=== PATIENT | male | born 1940 | race Caucasian/White ===

== ENCOUNTER 2017-11-24 13:47 | Outpatient (CLI) | payer MEDICARE, MEDICAID ==
[2017-11-24 14:00] VITALS: BP 118/50
[2017-11-24] MEDS ORDERED: DULCOLAX10 MG RC (16:21)
[2017-11-24] MEDS ORDERED: ATORVASTATIN CA20 MG ORAL (16:21)
[2017-11-24] MEDS ORDERED: FOLIC ACID1 MG ORAL (16:21)
[2017-11-24] MEDS ORDERED: FERROUS SULFAT325 MG ORAL (16:21)
[2017-11-24] MEDS ORDERED: DEXILANT60 MG ORAL (16:21)
[2017-11-24] MEDS ORDERED: MILK OF MA400 MG/51 ORAL (16:21)
[2017-11-24] MEDS ORDERED: ISOSORBIDE MONO60 M1 PO (16:21)
[2017-11-24] MEDS ORDERED: PLAVIX75 MG ORAL (16:21)
[2017-11-24] MEDS ORDERED: CARVEDILOL3.125 MG ORAL (16:21)
[2017-11-24] MEDS ORDERED: RANEXA500 MG ORAL (16:21)
[2017-11-24] MEDS ORDERED: PROZAC20 MG ORAL (16:21)
[2017-11-24] MEDS ORDERED: VITAMIN D250000 UNI1 ORAL (16:21)
[2017-11-24] MEDS ORDERED: ALBUTEROL2.5 MG/3 M INH (16:21)
[2017-11-24] MEDS ORDERED: ACETAMINOPHEN325 M1 ORAL (16:21)
[2017-11-24] MEDS ORDERED: ASPIRIN EC81 MG ORAL (16:21)
[2017-11-24] MEDS ORDERED: SOD CITRATE-CIT15 ML PO (16:21)
[2017-11-24] MEDS ORDERED: MULTIVITAMINS1 EAC2 ORAL (16:21)
--- NOTE | 2017-11-24 16:41 | GI Initial Consult Note ---
Alexandria Moreno N.PVishnu 11/24/17 1640: History of Present Illness General Date patient seen: Nov 24, 2017 Time patient seen: 15:00 Referring physician: DARRIAN Reason for Consultation: ANEMIA Present Illness HPI 77 year old male referred by Dr. Jarquin for anemia evaluation. Pt presents today with c/o of lower abdominal pain, N/V and diarrhea. Currently on a mechanical soft diet. Stated he had diarrhea with dehydration/acute kidney failure approximately 10 days ago. Recent admission to [place], where patient received IV abx. No colonoscopy in the past. Home Meds Reported Medications Loperamide HCl (IMODIUM A-D) 2 Mg Capsule, 2 MG PO Q6HR Y for Diarrhea, CAP 11/24/17 Furosemide* (LASIX*) 20 Mg Tablet, 10 MG ORAL DAILY, TAB 11/24/17 Docusate Sodium* (DOCUSATE SODIUM*) 100 Mg Capsule, 200 MG ORAL DAILY, CAP 11/24/17 Potassium Chloride (KLOR-CON M20) 20 Meq Tab.er.prt, 20 MEQ ORAL DAILY, TAB 0 Refills 11/24/17 Amlodipine Besylate* (AMLODIPINE BESYLATE*) 5 Mg Tablet, 5 MG ORAL DAILY, TAB 11/24/17 Pantoprazole* (PROTONIX*) 40 Mg Tablet.dr, 40 MG ORAL DAILY, TAB 11/24/17 Citric Acid/Sodium Citrate (SOD CITRATE-CITRIC ACID SOLN) 15 Ml Solution, 15 ML PO QID 11/24/17 Ranolazine* (RANEXA*) 500 Mg Tab.er.12h, 1000 MG ORAL EVERY 12 HOURS, #60 TAB 0 Refills 11/24/17 Fluoxetine Hcl* (PROZAC*) 20 Mg Capsule, 20 MG ORAL DAILY, CAP 11/24/17 Clopidogrel Bisulfate* (PLAVIX*) 75 Mg Tablet, 75 MG ORAL DAILY, TAB 11/24/17 Multivitamins* (MULTIVITAMINS*) 1 Each Tablet, 1 TAB ORAL DAILY, TAB 0 Refills 11/24/17 Magnesium Hydroxide* (MILK OF MAGNESIA*) 400 Mg/5 Ml Oral.susp, 30 ML ORAL PRN, ML 11/24/17 Isosorbide Mononitrate (ISOSORBIDE MONONITRATE ER) 60 Mg Tab.er.24h, 60 MG PO DAILY, TAB 11/24/17 Folic Acid* (FOLIC ACID*) 1 Mg Tablet, 1 MG ORAL DAILY, TAB 11/24/17 Ferrous Sulfate* (FERROUS SULFATE*) 325 Mg Tablet, 325 MG ORAL DAILY, #30 TAB 0 Refills 11/24/17 Ergocalciferol (Vitamin D2)* (VITAMIN D*) 50,000 Unit Capsule, 78704 UNIT ORAL ONCE A WEEK, CAP 11/24/17 Bisacodyl (DULCOLAX) 10 Mg Supp.rect, 10 MG RC PRN, SUPP 11/24/17 Dexlansoprazole (Dexilant) 60 Mg Cap.bp, 60 MG ORAL DAILY, CAP 11/24/17 Carvedilol* (CARVEDILOL*) 3.125 Mg Tablet, 3.125 MG ORAL EVERY 12 HOURS, TAB 11/24/17 Atorvastatin Calcium* (ATORVASTATIN CALCIUM*) 20 Mg Tablet, 20 MG ORAL BEDTIME, TAB 11/24/17 Aspirin Ec* (ASPIRIN EC*) 81 Mg Tablet., 81 MG ORAL DAILY, TAB 11/24/17 Albuterol Sulfate* (ALBUTEROL SULFATE HHN*) 2.5 Mg/3 Ml Vial.neb, 3 ML INH Q4H Y for Shortness of Breath, EA 11/24/17 Acetaminophen* (ACETAMINOPHEN 325MG TABLET*) 325 Mg Tablet, 325 MG ORAL Q6H Y for For Pain Level <=5, TAB 11/24/17 Med list reviewed/reconciled: Yes Allergies: Coded Allergies: No Known Allergies (Unverified , 11/24/17) Patient History History Provided By: Patient, Medical Record PMH Narrative Bladder CA GERD IBS ?COPD HTN/HLD CHF CAD Anemia Depression Past Surgical History: 2004 double bypass 2014 bladder removal Pertinent Family History: none Social History: Reports: smoking - quit, alcohol use Review of Systems All Other Systems: negative except mentioned in HPI Physical Exam Vital Signs Date Time Temp Pulse Resp B/P (MAP) Pulse Ox O2 Delivery O2 Flow Rate FiO2 11/24/17 14:00 97.7 79 16 118/50 96 97.7 Sp02 EP Interpretation: reviewed, normal General Appearance: well appearing, no apparent distress, alert Head: normocephalic EENT: PERRL/EOMI, normal ENT inspection Neck: supple Respiratory: normal breath sounds, no respiratory distress Cardiovascular: normal rate Gastrointestinal: normal inspection, non tender, soft, normal bowel sounds, non -distended Rectal: deferred Genitourinary: deferred Musculoskeletal: back normal, other - wheel chair Neurologic: normal inspection, alert, oriented x3, responsive Psychiatric: normal inspection, judgement/insight normal, memory normal Skin: normal inspection, normal color, no rash, warm/dry, palpation normal, well hydrated Lymphatic: normal inspection, no adenopathy GI: Plan Problems: (1) Anemia (2) Colitis (3) Colonoscopy planned (4) Bladder carcinoma (5) GERD (gastroesophageal reflux disease) (6) IBS (irritable bowel syndrome) (7) HTN (hypertension) (8) HLD (hyperlipidemia) (9) CHF (congestive heart failure) (10) CAD (coronary artery disease) (11) Depression Plan EGD/colonoscopy scheduled for 11/28/17. - CLD & (Nulytely/Suprep/Movi-Prep) prep instructions given and acknowledged by patient. - NPO @ AL day prior procedure explained. - orders to be sent to SNF Seen with Dr. Villalta. Thank you for this patient referral. JHON VILLALTA 11/28/17 1010: History of Present Illness Present Illness Home Meds Reported Medications Loperamide HCl (IMODIUM A-D) 2 Mg Capsule, 2 MG PO Q6HR Y for Diarrhea, CAP 11/24/17 Furosemide* (LASIX*) 20 Mg Tablet, 10 MG ORAL DAILY, TAB 11/24/17 Docusate Sodium* (DOCUSATE SODIUM*) 100 Mg Capsule, 200 MG ORAL DAILY, CAP 11/24/17 Potassium Chloride (KLOR-CON M20) 20 Meq Tab.er.prt, 20 MEQ ORAL DAILY, TAB 0 Refills 11/24/17 Amlodipine Besylate* (AMLODIPINE BESYLATE*) 5 Mg Tablet, 5 MG ORAL DAILY, TAB 11/24/17 Pantoprazole* (PROTONIX*) 40 Mg Tablet.dr, 40 MG ORAL DAILY, TAB 11/24/17 Citric Acid/Sodium Citrate (SOD CITRATE-CITRIC ACID SOLN) 15 Ml Solution, 15 ML PO QID 11/24/17 Ranolazine* (RANEXA*) 500 Mg Tab.er.12h, 1000 MG ORAL EVERY 12 HOURS, #60 TAB 0 Refills 11/24/17 Fluoxetine Hcl* (PROZAC*) 20 Mg Capsule, 20 MG ORAL DAILY, CAP 11/24/17 Clopidogrel Bisulfate* (PLAVIX*) 75 Mg Tablet, 75 MG ORAL DAILY, TAB 11/24/17 Multivitamins* (MULTIVITAMINS*) 1 Each Tablet, 1 TAB ORAL DAILY, TAB 0 Refills 11/24/17 Magnesium Hydroxide* (MILK OF MAGNESIA*) 400 Mg/5 Ml Oral.susp, 30 ML ORAL PRN, ML 11/24/17 Isosorbide Mononitrate (ISOSORBIDE MONONITRATE ER) 60 Mg Tab.er.24h, 60 MG PO DAILY, TAB 11/24/17 Folic Acid* (FOLIC ACID*) 1 Mg Tablet, 1 MG ORAL DAILY, TAB 11/24/17 Ferrous Sulfate* (FERROUS SULFATE*) 325 Mg Tablet, 325 MG ORAL DAILY, #30 TAB 0 Refills 11/24/17 Ergocalciferol (Vitamin D2)* (VITAMIN D*) 50,000 Unit Capsule, 73317 UNIT ORAL ONCE A WEEK, CAP 11/24/17 Bisacodyl (DULCOLAX) 10 Mg Supp.rect, 10 MG RC PRN, SUPP 11/24/17 Dexlansoprazole (Dexilant) 60 Mg Cap.bp, 60 MG ORAL DAILY, CAP 11/24/17 Carvedilol* (CARVEDILOL*) 3.125 Mg Tablet, 3.125 MG ORAL EVERY 12 HOURS, TAB 11/24/17 Atorvastatin Calcium* (ATORVASTATIN CALCIUM*) 20 Mg Tablet, 20 MG ORAL BEDTIME, TAB 11/24/17 Aspirin Ec* (ASPIRIN EC*) 81 Mg Tablet.dr, 81 MG ORAL DAILY, TAB 11/24/17 Albuterol Sulfate* (ALBUTEROL SULFATE HHN*) 2.5 Mg/3 Ml Vial.neb, 3 ML INH Q4H Y for Shortness of Breath, EA 11/24/17 Acetaminophen* (ACETAMINOPHEN 325MG TABLET*) 325 Mg Tablet, 325 MG ORAL Q6H Y for For Pain Level <=5, TAB 11/24/17 Allergies: Coded Allergies: No Known Allergies (Unverified , 11/24/17) GI: Plan Plan The patient was seen and examined at bedside and all new and available data was reviewed in the patients chart. I agree with the above findings, impression and plan. (Patient seen earlier today. Signature stamp does not reflect patient encounter time.). - MD Tiffanie Gomez Anh Santi Bobo Nov 24, 2017 16:40 JHON VILLALTA Nov 28, 2017 10:10
[2017-11-24] MEDS ORDERED: PROTONIX40 MG ORAL (22:42)
[2017-11-24] MEDS ORDERED: KLOR-CON M2020 MEQ ORAL (22:42)
[2017-11-24] MEDS ORDERED: AMLODIPINE BESYL5 MG ORAL (22:42)
[2017-11-24] MEDS ORDERED: DOCUSATE SODIU100 MG ORAL (22:42)
[2017-11-24] MEDS ORDERED: IMODIUM A-D2 M2 PO (22:51)
[2017-11-24] MEDS ORDERED: FUROSEMIDE20 M1 ORAL (22:51)
== END 2017-11-24 14:17 | disposition home or self-care (01) ==
LOC: PAN 13:47
DX: K52.9 Noninfective gastroenteritis and colitis, unspecified (principal); D64.9 Anemia, unspecified; C67.9 Malignant neoplasm of bladder, unspecified; K21.9 Gastro-esophageal reflux disease without esophagitis; K58.9 Irritable bowel syndrome, unspecified; I10 Essential (primary) hypertension; E78.5 Hyperlipidemia, unspecified; I11.0 Hypertensive heart disease with heart failure; F32.9 Major depressive disorder, single episode, unspecified; F17.200 Nicotine dependence, unspecified, uncomplicated; Z79.82 Long term (current) use of aspirin
CPT/HCPCS: 99202

== ENCOUNTER 2017-11-24 19:44 | Inpatient (IN) | payer MEDICARE, OTHER ==
[~2017-11-24] VITALS: Ht 167.6 cm; Wt 86.0 kg
[~2017-11-24 19:44] MED LIST: ACETAMINOPHEN325 M1 ORAL; ALBUTEROL2.5 MG/3 M INH; ASPIRIN EC81 MG ORAL; ATORVASTATIN CA20 MG ORAL; CARVEDILOL3.125 MG ORAL; DEXILANT60 MG ORAL; DULCOLAX10 MG RC; FERROUS SULFAT325 MG ORAL; FOLIC ACID1 MG ORAL; ISOSORBIDE MONO60 M1 PO; MILK OF MA400 MG/51 ORAL; MULTIVITAMINS1 EAC2 ORAL; PLAVIX75 MG ORAL; PROZAC20 MG ORAL; RANEXA500 MG ORAL; SOD CITRATE-CIT15 ML PO; VITAMIN D250000 UNI1 ORAL
[2017-11-24 20:30] LABS: BASOPHILS % (AUTO) 1.1 % (0.0-2.0); EOSINOPHILS % (AUTO) 0.5 % (0.0-3.0); HEMATOCRIT 24.9 % (42.0-52.0); HEMOGLOBIN 8.4 G/DL (14.2-18.0); MEAN CORPUSCULAR VOLUME 99 FL (80-99); MONOCYTES % (AUTO) 5.8 % (1.0-10.0); NEUTROPHILS % (AUTO) 80.6 % (45.0-75.0); PLATELET COUNT 223 K/UL (150-450); RED BLOOD COUNT 2.51 M/UL (4.70-6.10); RED CELL DISTRIBUTION WIDTH 14.5 % (11.6-14.8); WHITE BLOOD COUNT 6.5 K/UL (4.8-10.8)
[2017-11-24 20:48] LABS: INR 1.1 (0.9-1.1)
[2017-11-24 20:50] VITALS: BP 135/48
[2017-11-24 21:49] LABS: ANION GAP 10 mmol/L (5-15); BLOOD UREA NITROGEN 17 mg/dL (7-18); CALCIUM 8.8 MG/DL (8.5-10.1); CARBON DIOXIDE 19 MMOL/L (21-32); CHLORIDE 104 MMOL/L (98-107); CREATININE 1.2 MG/DL (0.55-1.30); SODIUM 133 MMOL/L (136-145)
[2017-11-24 22:03] LABS: ALANINE AMINOTRANSFERASE 29 U/L (12-78); ALBUMIN 1.9 G/DL (3.4-5.0); ALBUMIN/GLOBULIN RATIO 0.4 (1.0-2.7); ALKALINE PHOSPHATASE 68 U/L (46-116); ASPARTATE AMINO TRANSFERASE 80 U/L (15-37); BILIRUBIN,TOTAL 0.8 MG/DL (0.2-1.0); CKMB 0.5 NG/ML (0.0-3.6); CREATINE KINASE 186 U/L (26-308)
[2017-11-24 22:14] LABS: POTASSIUM 5.8 MMOL/L (3.5-5.1)
--- NOTE | 2017-11-24 22:19 | Emergency Room Report ---
History of Present Illness General Chief Complaint: Chest Pain Source: Patient, Family Member Present Illness HPI This patient presents from a correction facility. Apparently he has had a difficult couple of weeks. He developed a bad colitis and diarrhea and became very dehydrated. He was admitted to [facility] for a couple weeks. He was then transitioned to a correction facility. He's had several episodes of chest pain and anxiety at the correction facility. He presents today with chest pain. He also complains of pain related to irritation from the diarrhea. Has a history of sepsis in bacteremia related to colitis. History of congestive heart failure. History of acute kidney injury. History of coronary artery disease and CABG. Allergies: Coded Allergies: No Known Allergies (Unverified , 11/24/17) Patient History Past Medical History: see triage record, HTN, [place], CAD, CHF, pneumonia, renal disease Past Surgical History: CABG Social History: Denies: smoking, alcohol use, drug use Reviewed Nursing Documentation: PMH: Agreed, PSxH: Agreed Nursing Documentation-PMH Hx Cardiac Problems: Yes Hx Hypertension: Yes Hx COPD: Yes - ? Hx Cancer: Yes Hx Gastrointestinal Problems: Yes Hx Neurological Problems: No Review of Systems All Other Systems: negative except mentioned in HPI Physical Exam Vital Signs Date Time Temp Pulse Resp B/P (MAP) Pulse Ox O2 Delivery O2 Flow Rate FiO2 11/24/17 19:38 96.0 78 18 135/48 97 Room Air 96.1 Sp02 EP Interpretation: reviewed, normal General Appearance: no apparent distress, alert, GCS 15, non-toxic Head: normocephalic, atraumatic Eyes: bilateral eye normal inspection, bilateral eye PERRL ENT: hearing grossly normal, normal pharynx, no angioedema, normal voice Neck: full range of motion, supple/symm/no masses Respiratory: chest non-tender, lungs clear, normal breath sounds, speaking full sentences Cardiovascular #1: regular rate, rhythm, no edema Gastrointestinal: normal bowel sounds, non tender, soft, non-distended, no guarding, no rebound Rectal: deferred Musculoskeletal: back normal, normal range of motion, non-tender Neurologic: alert, oriented x3, responsive, sensory intact, speech normal Psychiatric: judgement/insight normal, memory normal, mood/affect normal Skin: well hydrated, other - See RN note Medical Decision Making Diagnostic Impression: Primary Impression: Chest pain Additional Impression: Elevated troponin ER Course This patient presents from a correction facility with chest pain. His troponin is indeterminate. Given his age, history of coronary artery disease and chest pain he will be admitted to the hospital for further trending of his cardiac enzymes and further evaluation and treatment. He is also found to be anemic. This seems to be slightly lower than his baseline. He is being followed closely by GI for his colitis and has planned a colonoscopy. He was admitted for further evaluation and treatment. Laboratory Tests Test 11/24/17 19:50 11/24/17 21:15 White Blood Count 6.5 K/UL (4.8-10.8) Red Blood Count 2.51 M/UL (4.70-6.10) L Hemoglobin 8.4 G/DL (14.2-18.0) L Hematocrit 24.9 % (42.0-52.0) L Mean Corpuscular Volume 99 FL (80-99) Mean Corpuscular Hemoglobin 33.4 PG (27.0-31.0) H Mean Corpuscular Hemoglobin Concent 33.7 G/DL (32.0-36.0) Red Cell Distribution Width 14.5 % (11.6-14.8) Platelet Count 223 K/UL (150-450) Mean Platelet Volume 8.7 FL (6.5-10.1) Neutrophils (%) (Auto) 80.6 % (45.0-75.0) H Lymphocytes (%) (Auto) 12.0 % (20.0-45.0) L Monocytes (%) (Auto) 5.8 % (1.0-10.0) Eosinophils (%) (Auto) 0.5 % (0.0-3.0) Basophils (%) (Auto) 1.1 % (0.0-2.0) Prothrombin Time 11.2 SEC (9.30-11.50) Prothrombin Time INR 1.1 (0.9-1.1) PTT 28 SEC (23-33) Troponin I 0.129 ng/mL (0.000-0.056) Sodium Level 133 MMOL/L (136-145) L Potassium Level 5.8 MMOL/L (3.5-5.1) H Chloride Level 104 MMOL/L (98-107) Carbon Dioxide Level 19 MMOL/L (21-32) L Anion Gap 10 mmol/L (5-15) Blood Urea Nitrogen 17 mg/dL (7-18) Creatinine 1.2 MG/DL (0.55-1.30) Estimate Glomerular Filtration Rate mL/min (>60) Glucose Level 97 MG/DL (74-106) Calcium Level 8.8 MG/DL (8.5-10.1) Total Bilirubin Pending Aspartate Amino Transferase (AST) Pending Alanine Aminotransferase (ALT) Pending Alkaline Phosphatase Pending Total Creatine Kinase Pending Creatine Kinase MB Pending Total Protein Pending Albumin Pending Globulin Pending EKG Diagnostic Results Rate: normal Rhythm: NSR ST Segments: no acute changes Rhythm Strip Diag. Results EP Interpretation: yes Rate: 70's Rhythm: NSR, no PVC's, no ectopy Chest X-Ray Diagnostic Results Chest X-Ray Diagnostic Results : Chest X-Ray Ordered: Yes # of Views/Limited/Complete: 1 View Indication: Chest Pain EP Interpretation: Yes Interpretation: no consolidation, no effusion, no pneumothorax, no acute cardiopulmonary disease Impression: No acute disease Electronically Signed by: Angelito Last Vital Signs Date Time Temp Pulse Resp B/P (MAP) Pulse Ox O2 Delivery O2 Flow Rate FiO2 11/24/17 19:38 96.0 78 18 135/48 97 Room Air 96.1 Disposition: ADMITTED INPATIENT Condition: Stable Referrals: JHON COLMENARES (PCP) KEYA BLOCK D.O. Nov 24, 2017 22:18
[2017-11-24] MEDS ORDERED: AMLODIPINE BESYL5 MG ORAL (22:42)
[2017-11-24] MEDS ORDERED: KLOR-CON M2020 MEQ ORAL (22:42)
[2017-11-24] MEDS ORDERED: PROTONIX40 MG ORAL (22:42)
[2017-11-24] MEDS ORDERED: DOCUSATE SODIU100 MG ORAL (22:42)
[2017-11-24 22:46] VITALS: BP 117/46
[2017-11-24] MEDS ORDERED: IMODIUM A-D2 M2 PO (22:51)
[2017-11-24] MEDS ORDERED: FUROSEMIDE20 M1 ORAL (22:51)
[2017-11-24] MEDS ORDERED: ALPRAZolam 0.25mg tab ORAL ONE (23:30)
[2017-11-25] VITALS (8 sets, daily range): BP systolic 108–132; BP diastolic 48–55
[2017-11-25] MEDS ORDERED: LORazepam Inj 2mg/ml 1ml IV ONE (03:45)
[2017-11-25 03:51] LABS: APPEARANCE,URINE CLEAR; BILIRUBIN, URINE NEGATIVE (NEGATIVE); GLUCOSE, URINE (UA) NEGATIVE (NEGATIVE); KETONES,URINE NEGATIVE (NEGATIVE); LEUKOCYTE ESTERASE ,URINE 2+ (NEGATIVE); NITRITE,URINE NEGATIVE (NEGATIVE); PH,URINE 7 (4.5-8.0); PROTEIN,URINE 2+ (NEGATIVE); UROBILINOGEN,URINE NORMAL MG/DL (0.0-1.0)
[2017-11-25 04:00] LABS: COLOR,URINE AMBER
[2017-11-25] MEDS ORDERED: Milk of Magnesia 30ml Ud ORAL PRN (08:45)
[2017-11-25] MEDS ORDERED: Albuterol ud Inhalation HHN PRN (08:45)
[2017-11-25] MEDS ORDERED: Loperamide 2mg cap ORAL PRN (08:45)
[2017-11-25] MEDS ORDERED: Aspirin EC 81mg tab ORAL SCH (09:00)
[2017-11-25] MEDS: D5NS 1,000 ML IV SCH ×2 (10:25→21:50)
[2017-11-25] MEDS: Aspirin Baby 81mg ORAL SCH (10:26)
[2017-11-25] MEDS: Docusate 100mg cap ORAL SCH (10:28)
[2017-11-25] MEDS: Ranolazine 500mg tab ORAL SCH ×2 (10:30→22:13)
[2017-11-25] MEDS: Sodium Citrate 30ml ORAL SCH ×4 (10:48→22:12)
[2017-11-25 10:56] LABS: ALANINE AMINOTRANSFERASE 22 U/L (12-78); ALBUMIN 2.1 G/DL (3.4-5.0); ALKALINE PHOSPHATASE 67 U/L (46-116); ASPARTATE AMINO TRANSFERASE 21 U/L (15-37); BILIRUBIN,DIRECT 0.1 MG/DL (0.0-0.3); BILIRUBIN,TOTAL 0.3 MG/DL (0.2-1.0); CHOLESTEROL 111 MG/DL (< 200); HDL CHOLESTEROL 26 MG/DL (40-60); TRIGLYCERIDES 159 MG/DL (30-150)
--- NOTE | 2017-11-25 11:06 | Diagnostic Imaging Report ---
Indication: Chest pain Comparison: 02/16/2006 A single view chest radiograph was obtained. Findings: Interstitial reticular markings present bilaterally. Findings appear relatively stable compared to last study. The heart is borderline enlarged. Sternotomy noted. Bones are osteopenic. IMPRESSION: Interstitial prominence nonspecific.
--- NOTE | 2017-11-25 11:18 | History & Physical ---
History and Physical History & Physicial pt seen and examined d/w Dr Dowd at bedside d/w daughter chelle. Full note dictated Shavonne Oro MD [phone] SHAVONNE OOR Nov 25, 2017 11:18
--- NOTE | 2017-11-25 11:30 | Wound Care Consultation ---
Wound Assessment Wound Assessment #1: Wound Number: 1 Wound Present on Admission: Yes New Wound: No Status Change of Wound: No Wound Location Body Site Modif: mid Wound Location Body Site: other - Sacrococcygeal Wound Type: pressure ulcer Douglas Test: Does not Douglas Pressure Ulcer Stage: Deep Tissue Injury Wound Thickness: Full Thickness Wound Length: 6.5 Wound Width: 5.0 Wound Depth: utd Percent of Wound Purple/Maroon: 100 Wound Drainage Amount: None Wound Drainage Odor: None/Absent Tissue Surrounding Wound: Erythemic Wound General Appearance: Reddened - purple, deep red Wound Assessment #2: Wound Number: 2 Wound Present on Admission: Yes New Wound: No Status Change of Wound: No Wound Location Body Site: perineal area - extending to left and right buttock Wound Type: erosion Douglas Test: Does not Douglas Rashes: Rachael w/erosion Percent of Wound Sidney/Red: 100 Wound Drainage Amount: None Wound Drainage Odor: None/Absent Tissue Surrounding Wound: Erythemic Wound General Appearance: Reddened Wound Assessment #3: Wound Number: 3 Wound Present on Admission: Yes New Wound: No Status Change of Wound: No Wound Location Body Site Modif: left Wound Location Body Site: hand Wound Type: scab - dry Douglas Test: Does not Douglas Wound Thickness: Full Thickness Percent of Wound Purple/Maroon: 100 Wound Drainage Amount: None Wound Drainage Odor: None/Absent Tissue Surrounding Wound: Erythemic Wound General Appearance: Reddened Wound Comment #1 Sacrococcygeal SDTI pressure ulcer #2 Rachael rash with erosion on perineal area extending to left and right buttocks #3 Dry scab on left arm #4 Left and right heel noted with dry skin Recommendation -Local wound care per protocol -Keep clean and dry -Turn and reposition -Offload both heels -Heel protector on both heels -Optimize nutrition -Low air loss mattress -Assess and f/u accordingly for any changes MAURA TA RN Nov 25, 2017 11:30
--- NOTE | 2017-11-25 12:40 | Consultation ---
History of Present Illness General Date patient seen: Nov 25, 2017 Chief Complaint: Chest Pain Present Illness HPI 77 year old male with hx of CVA, IBD, CHF, HTN, coronary artery disease and CABG presented to ER from a snf facility with CC of several episodes of chest pain and anxiety at the snf facility. Pt is not a good historian and seems depressed, doesn't want to answer any questions. Allergies: Coded Allergies: No Known Allergies (Unverified , 11/24/17) Medication History Scheduled Amlodipine Besylate* (Amlodipine Besylate*), 5 MG ORAL DAILY, (Reported) Aspirin Ec* (Aspirin Ec*), 81 MG ORAL DAILY, (Reported) Atorvastatin Calcium* (Atorvastatin Calcium*), 20 MG ORAL BEDTIME, (Reported) Bisacodyl (Dulcolax), 10 MG RC PRN, (Reported) Carvedilol* (Carvedilol*), 3.125 MG ORAL EVERY 12 HOURS, (Reported) Citric Acid/Sodium Citrate (Sod Citrate-Citric Acid Soln), 15 ML PO QID, ( Reported) Clopidogrel Bisulfate* (Plavix*), 75 MG ORAL DAILY, (Reported) Dexlansoprazole (Dexilant), 60 MG ORAL DAILY, (Reported) Docusate Sodium* (Docusate Sodium*), 200 MG ORAL DAILY, (Reported) Ergocalciferol (Vitamin D2)* (Vitamin D*), 50,000 UNIT ORAL ONCE A WEEK, ( Reported) Ferrous Sulfate* (Ferrous Sulfate*), 325 MG ORAL DAILY, (Reported) Fluoxetine Hcl* (Prozac*), 20 MG ORAL DAILY, (Reported) Folic Acid* (Folic Acid*), 1 MG ORAL DAILY, (Reported) Furosemide* (Lasix*), 10 MG ORAL DAILY, (Reported) Isosorbide Mononitrate (Isosorbide Mononitrate Er), 60 MG PO DAILY, (Reported) Magnesium Hydroxide* (Milk Of Magnesia*), 30 ML ORAL PRN, (Reported) Multivitamins* (Multivitamins*), 1 TAB ORAL DAILY, (Reported) Pantoprazole* (Protonix*), 40 MG ORAL DAILY, (Reported) Potassium Chloride (Klor-Con M20), 20 MEQ ORAL DAILY, (Reported) Ranolazine* (Ranexa*), 1,000 MG ORAL EVERY 12 HOURS, (Reported) Scheduled PRN Acetaminophen* (Acetaminophen 325MG Tablet*), 325 MG ORAL Q6H PRN for For Pain Level <=5, (Reported) Albuterol Sulfate* (Albuterol Sulfate Hhn*), 3 ML INH Q4H PRN for Shortness of Breath, (Reported) Loperamide HCl (Imodium A-D), 2 MG PO Q6HR PRN for Diarrhea, (Reported) Patient History Healthcare decision maker Resuscitation status Advanced Directive on File Past Medical/Surgical History Past Medical/Surgical History: (1) Bladder carcinoma (2) IBS (irritable bowel syndrome) (3) Depression Review of Systems All Other Systems: negative except mentioned in HPI Physical Exam General Appearance: WD/WN, no apparent distress Lines, tubes and drains: peripheral HEENT: normocephalic, atraumatic Neck: non-tender, normal alignment Respiratory/Chest: chest wall non-tender, lungs clear Cardiovascular/Chest: normal peripheral pulses, normal rate Abdomen: normal bowel sounds, non tender Genitourinary/Rectal: normal genital exam Extremities: normal range of motion Skin Exam: warm/dry 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 Last 24 Hour Vital Signs Date Time Temp Pulse Resp B/P (MAP) Pulse Ox O2 Delivery O2 Flow Rate FiO2 11/25/17 10:31 77 132/55 11/25/17 10:27 77 132/55 11/25/17 08:00 74 11/25/17 08:00 97.5 77 22 132/55 98 Room Air 98 97.5 11/25/17 05:20 97.2 77 18 108/51 99 Room Air 97.2 11/25/17 04:43 97.2 77 18 108/51 99 Room Air 97.2 11/25/17 03:00 97.2 75 18 126/48 99 Room Air 97.2 11/25/17 01:30 97.0 78 20 126/51 99 Room Air 97.0 11/24/17 22:46 97.0 75 21 117/46 100 Room Air 97.0 11/24/17 20:50 78 18 Room Air 11/24/17 20:50 96.1 71 18 135/48 97 Room Air 96.1 11/24/17 19:38 96.0 78 18 135/48 97 Room Air 96.1 Intake and Output 11/24/17 11/25/17 19:00 07:00 Intake Total 200 ml Balance 200 ml Intake Oral 200 ml # Bowel Movements 1 Laboratory Tests Test 11/24/17 19:50 11/24/17 21:15 11/24/17 22:00 11/25/17 03:30 White Blood Count 6.5 K/UL (4.8-10.8) Red Blood Count 2.51 M/UL (4.70-6.10) L Hemoglobin 8.4 G/DL (14.2-18.0) L Hematocrit 24.9 % (42.0-52.0) L Mean Corpuscular Volume 99 FL (80-99) Mean Corpuscular Hemoglobin 33.4 PG (27.0-31.0) H Mean Corpuscular Hemoglobin Concent 33.7 G/DL (32.0-36.0) Red Cell Distribution Width 14.5 % (11.6-14.8) Platelet Count 223 K/UL (150-450) Mean Platelet Volume 8.7 FL (6.5-10.1) Neutrophils (%) (Auto) 80.6 % (45.0-75.0) H Lymphocytes (%) (Auto) 12.0 % (20.0-45.0) L Monocytes (%) (Auto) 5.8 % (1.0-10.0) Eosinophils (%) (Auto) 0.5 % (0.0-3.0) Basophils (%) (Auto) 1.1 % (0.0-2.0) Prothrombin Time 11.2 SEC (9.30-11.50) Prothromb Time International Ratio 1.1 (0.9-1.1) Activated Partial Thromboplast Time 28 SEC (23-33) Troponin I 0.129 ng/mL (0.000-0.056) Sodium Level 133 MMOL/L (136-145) L Potassium Level 5.8 MMOL/L (3.5-5.1) H 3.3 MMOL/L (3.5-5.1) L Chloride Level 104 MMOL/L (98-107) Carbon Dioxide Level 19 MMOL/L (21-32) L Anion Gap 10 mmol/L (5-15) Blood Urea Nitrogen 17 mg/dL (7-18) Creatinine 1.2 MG/DL (0.55-1.30) Estimat Glomerular Filtration Rate mL/min (>60) Glucose Level 97 MG/DL (74-106) Calcium Level 8.8 MG/DL (8.5-10.1) Total Bilirubin 0.8 MG/DL (0.2-1.0) Aspartate Amino Transf (AST/SGOT) 80 U/L (15-37) H Alanine Aminotransferase (ALT/SGPT) 29 U/L (12-78) Alkaline Phosphatase 68 U/L (46-116) Total Creatine Kinase 186 U/L (26-308) Creatine Kinase MB 0.5 NG/ML (0.0-3.6) Creatine Kinase MB Relative Index 0.2 Total Protein 7.2 G/DL (6.4-8.2) Albumin 1.9 G/DL (3.4-5.0) L Globulin 5.3 g/dL Albumin/Globulin Ratio 0.4 (1.0-2.7) L Urine Color Elvi Urine Appearance Clear Urine pH 7 (4.5-8.0) Urine Specific [place] 1.005 (1.005-1.035) Urine Protein 2+ (NEGATIVE) H Urine Glucose (UA) Negative (NEGATIVE) Urine Ketones Negative (NEGATIVE) Urine Occult Blood 2+ (NEGATIVE) H Urine Nitrite Negative (NEGATIVE) Urine Bilirubin Negative (NEGATIVE) Urine Ictotest Negative Urine Urobilinogen Normal MG/DL (0.0-1.0) Urine Leukocyte Esterase 2+ (NEGATIVE) H Urine RBC 2-4 /HPF (0 - 0) H Urine WBC 2-4 /HPF (0 - 0) Urine Squamous Epithelial Cells None /LPF (NONE/OCC) Urine Calcium Oxalate Crystals Few /LPF (NONE) Urine Bacteria Few /HPF (NONE) Test 11/25/17 10:00 Total Bilirubin 0.3 MG/DL (0.2-1.0) Direct Bilirubin 0.1 MG/DL (0.0-0.3) Aspartate Amino Transf (AST/SGOT) 21 U/L (15-37) Alanine Aminotransferase (ALT/SGPT) 22 U/L (12-78) Alkaline Phosphatase 67 U/L (46-116) Troponin I 0.101 ng/mL (0.000-0.056) Total Protein 6.0 G/DL (6.4-8.2) L Albumin 2.1 G/DL (3.4-5.0) L Triglycerides Level 159 MG/DL (30-150) H Cholesterol Level 111 MG/DL (< 200) LDL Cholesterol 60 mg/dL (<100) HDL Cholesterol 26 MG/DL (40-60) L Cholesterol/HDL Ratio 4.3 (3.3-4.4) Thyroid Stimulating Hormone (TSH) 3.552 uiU/mL (0.358-3.740) Height (Feet): 5 Height (Inches): 7.00 Weight (Pounds): 182 Medications Current Medications Medications (Trade) Dose Ordered Sig/Kadi Route PRN Reason Start Time Stop Time Status Last Admin Dose Admin Acetaminophen (Tylenol) 325 mg Q6H PRN ORAL For Pain Level <=5 11/25/17 08:45 12/25/17 08:44 Albuterol Sulfate (Proventil) 2.5 mg Q4H PRN HHN Shortness of Breath 11/25/17 08:45 11/30/17 08:44 Amlodipine Besylate (Norvasc) 5 mg DAILY ORAL 11/25/17 09:00 12/25/17 08:59 11/25/17 10:31 Aspirin (ASA) 81 mg DAILY ORAL 11/25/17 09:00 12/25/17 08:59 11/25/17 10:26 Atorvastatin Calcium (Lipitor) 20 mg BEDTIME ORAL 11/25/17 21:00 12/25/17 20:59 Bisacodyl (Dulcolax) 10 mg PRN RECTAL 11/25/17 08:45 12/25/17 08:44 UNV Carvedilol (Coreg) 3.125 mg EVERY 12 HOURS ORAL 11/25/17 09:00 12/25/17 08:59 11/25/17 10:27 Clopidogrel Bisulfate (Plavix) 75 mg DAILY ORAL 11/25/17 09:00 12/25/17 08:59 11/25/17 10:30 Clotrimazole (Lotrimin) 1 applic EVERY 12 HOURS TOPIC 11/25/17 21:00 12/25/17 20:59 UNV Dextrose/Sodium Chloride 1,000 ml @ 75 mls/hr [id number] IV 11/25/17 08:30 12/25/17 08:29 11/25/17 10:25 Docusate Sodium (Colace) 200 mg DAILY ORAL 11/25/17 09:00 12/25/17 08:59 11/25/17 10:28 Fluoxetine HCl (PROzac) 20 mg DAILY ORAL 11/25/17 09:00 12/25/17 08:59 11/25/17 10:29 Folic Acid (Folate) 1 mg DAILY ORAL 11/25/17 09:00 12/25/17 08:59 11/25/17 10:28 Furosemide (Lasix) 10 mg DAILY ORAL 11/25/17 09:00 12/25/17 08:59 11/25/17 10:28 Loperamide HCl (Imodium) 2 mg Q6HR PRN ORAL Diarrhea 11/25/17 08:45 12/25/17 08:44 Magnesium Hydroxide (Mom) 30 ml PRN ORAL 11/25/17 08:45 12/25/17 08:44 UNV Multivitamins (Multivitamins) 1 tab DAILY ORAL 11/25/17 09:00 12/25/17 08:59 11/25/17 10:30 Pantoprazole (Protonix) 40 mg DAILY ORAL 11/25/17 09:00 12/25/17 08:59 11/25/17 10:30 Potassium Chloride (K-Dur) 20 meq DAILY ORAL 11/25/17 09:00 12/25/17 08:59 11/25/17 10:28 Ranolazine (Ranexa ER 500mg) 1,000 mg EVERY 12 HOURS ORAL 11/25/17 09:00 12/25/17 08:59 11/25/17 10:30 Sodium Citrate (Bicitra) 15 ml QID ORAL 11/25/17 09:00 12/25/17 08:59 11/25/17 10:48 Vitamin A/Vitamin D (A & D Oint) 1 applic EVERY 12 HOURS TOPIC 11/25/17 21:00 12/25/17 20:59 UNV Assessment/Plan Problem List: (1) ACS (acute coronary syndrome) ICD Codes: I24.9 - Acute ischemic heart disease, unspecified SNOMED: 149332223 (2) CHF (congestive heart failure) ICD Codes: I50.9 - Heart failure, unspecified SNOMED: 90569683 (3) HTN (hypertension) ICD Codes: I10 - Essential (primary) hypertension SNOMED: 22570736 (4) Bladder carcinoma ICD Codes: C67.9 - Malignant neoplasm of bladder, unspecified SNOMED: 682025632 (5) IBS (irritable bowel syndrome) ICD Codes: K58.9 - Irritable bowel syndrome without diarrhea SNOMED: 82244696 (6) Depression ICD Codes: F32.9 - Major depressive disorder, single episode, unspecified SNOMED: 59976558 Assessment/Plan serial ekg, troponin, echo cardiology to see f/u electrolytes might need to be seen by psychiatry titrate fio2 to sat of 92% dvt prophylaxis. DAT BAL Nov 25, 2017 12:40
[2017-11-25] MEDS ORDERED: Atorvastatin 20mg tab ORAL SCH (21:00)
--- NOTE | 2017-11-25 21:00 | History and Physical Report ---
DATE OF ADMISSION: 11/24/2017 CHIEF COMPLAINT: Chest pain. HISTORY OF PRESENT ILLNESS: This is a pleasant 77-year-old gentleman with recent complicated hospitalization in an outside hospital with underlying sepsis, bacteremia, colitis, congestive heart failure, acute kidney injury, underlying history of coronary artery disease and coronary artery bypass graft, who presented from a retirement facility after the patient was expressing for half an hour chest pain, 10/10. No nausea or vomiting. No sweating noted. Based on the chart, the patient apparently has developed colitis and diarrhea and severely dehydrated with acute renal failure, admitted to [facility] for a couple of weeks, ended up in the ICU, in transition. The patient now came from a retirement facility. At this time, the patient's chest pain has resolved. The patient received sublingual nitroglycerin and aspirin en route to the hospital. PAST MEDICAL HISTORY: As above. In addition, history of hypertension, history of underlying renal disease, CHF, coronary artery disease. MEDICATIONS: At home, please refer to medication reconciliation from skilled nursing. I have reviewed at length. ALLERGIES: No known drug allergies. SOCIAL HISTORY: The patient does not smoke at the present time. No alcohol. No illicit drug use. The patient apparently in transition for most of the hospitalization from staying at [facility]. FAMILY HISTORY: Reviewed, noncontributory. REVIEW OF SYSTEMS: A 14-point review of systems done.CONSTITUTIONAL: No malaise. No fatigue. No fever. No chills. HEENT: No change in vision. No tinnitus. No epistaxis. No dysphagia. CARDIAC: Report of chest pain, history of hypertension, coronary artery disease, status post coronary artery bypass graft, and history of NM. LUNGS: No shortness of breath. No cough or wheezing. ABDOMEN: No nausea, vomiting, or abdominal pain. Recent history of colitis. GENITOURINARY: No dysuria or hematuria. The patient has Hensley catheter. Recent history of renal failure in an outside hospital. NEUROLOGIC: No history of CVA or history of TIA . All other systems reviewed and negative except for what was mentioned above. PHYSICAL EXAMINATION: GENERAL: The patient is sitting in bed, in no acute distress. VITAL SIGNS: Blood pressure 135/48, pulse oximetry 97% on room air, respiration 18, pulse 78, and temperature 96 degrees Fahrenheit. HEENT: Eyes anicteric. NECK: Supple. CARDIAC: S1 and S2 normal. No murmur, rub, or gallop. LUNGS: Clear. ABDOMEN: Soft, nontender, nondistended. No guarding. No rebound. GENITOURINARY: The patient has Hensley catheter. EXTREMITIES: A 1+ edema in lower extremities. The patient has ecchymosis from the previous and from the IV lines. NEUROLOGIC: The patient is awake, alert, and oriented to person and place. Moves all extremities. No focal sensory or motor deficits. LABORATORY AND DIAGNOSTIC DATA: WBC 6.5, hemoglobin 8.4, hematocrit 24.9, MCV 99, and platelet is 223,000; neutrophils 80%. Troponin 0.129, slightly elevated. PTT 28 and PT 1.1. Sodium 133, potassium 5.8 and elevated, chloride 104, bicarbonate 19, BUN 17, and creatinine 1.2. EKG, normal sinus rhythm, no acute ST changes, no PVCs, no ST elevation or depression. Chest x-ray, no consolidation, no effusion, no pneumothorax, no acute cardiopulmonary disease. IMPRESSION: 1. Chest pain with underlying history of coronary artery disease and coronary artery bypass graft with slight elevation of troponin. 2. Hyperkalemia. 3. Metabolic acidosis. 4. Hypertension. 5. History of congestive heart failure. 6. Recent hospitalization for colitis, sepsis, and bacteremia. 7. Indwelling Hensley catheter. 8. Anemia of chronic disease. PLAN: 1. Telemetry observation. 2. Pulmonary and Cardiology evaluation. 3. Repeat potassium. 4. Serial EKG and troponin. 5. A 2D echo. 6. Keep n.p.o. except for medication. 7. IV fluid. 8. Possible stress test for evaluation of coronary arteries. 9. We will check the electrolytes and replete as indicated. 10. Lower extremity venous Doppler and D-dimer to investigate if needed to check for pulmonary embolism. 11. Aspirin. 12. Blood pressure control. 13. Resume skilled nursing medication. 14. Further recommendation will be followed pending the patient's response to above measures and input by consultants. 15. Code status, Full Code. DISPOSITION: Back to retirement facility upon discharge. Time spent in evaluation and intervention of care 70 minutes. David D Charli Collado DR: BUD JOB#: [id number] CC: QUINTON
[2017-11-25] MEDS: Vitamin A&D Oint 2oz Tube TOPIC SCH (22:12)
--- NOTE | 2017-11-25 23:15 | Consultation ---
DATE OF CONSULTATION: 11/25/2017 CONSULTING PHYSICIAN: Sanam Burton M.D. HISTORY OF PRESENT ILLNESS: The patient is a 77-year-old male with history of multiple medical problems. The patient is having confusion, agitated, yelling, and screaming. Has been having poor insight and judgment. Not engaged during evaluation. He is responding to internal stimuli. Unable to provide any history. The patient is not redirectable. PAST MEDICAL HISTORY: Significant for hypertension, VA, CAD, CHF, pneumonia, and renal disease. ALLERGIES: No known drug allergies. SUBSTANCE HISTORY: No known history of illicit drug use or alcohol. MENTAL STATUS EXAMINATION: The patient is confused and disoriented. Mood is agitated. Affect is constricted, congruent with mood. Thought process is concrete. Thought content, no suicidal or homicidal ideations. ASSESSMENT: 1. Dementia with behavior disturbance. 2. Encephalopathy. PLAN: 1. We will start the patient on Seroquel 12.5 every 8 hours as needed. 2. We will continue to follow and readjust the medications. Sanam Burton M.D. DR: VELVET JOB#: [id number] CC:
[2017-11-26] VITALS: BP 102/56
[2017-11-26 04:00] VITALS: BP 108/50
[2017-11-26 04:15] LABS: BASOPHILS % (AUTO) 1.1 % (0.0-2.0); EOSINOPHILS % (AUTO) 0.9 % (0.0-3.0); HEMATOCRIT 27.5 % (42.0-52.0); HEMOGLOBIN 9.2 G/DL (14.2-18.0); LYMPHOCYTES % (AUTO) 9.4 % (20.0-45.0); MEAN CORPUSCULAR VOLUME 100 FL (80-99); MONOCYTES % (AUTO) 8.9 % (1.0-10.0); NEUTROPHILS % (AUTO) 79.8 % (45.0-75.0); PLATELET COUNT 249 K/UL (150-450); RED BLOOD COUNT 2.76 M/UL (4.70-6.10); RED CELL DISTRIBUTION WIDTH 14.2 % (11.6-14.8); WHITE BLOOD COUNT 5.7 K/UL (4.8-10.8)
[2017-11-26 04:48] LABS: ALANINE AMINOTRANSFERASE 20 U/L (12-78); ALBUMIN 1.9 G/DL (3.4-5.0); ALBUMIN/GLOBULIN RATIO 0.4 (1.0-2.7); ALKALINE PHOSPHATASE 69 U/L (46-116); ANION GAP 7 mmol/L (5-15); ASPARTATE AMINO TRANSFERASE 17 U/L (15-37); BILIRUBIN,TOTAL 0.3 MG/DL (0.2-1.0); BLOOD UREA NITROGEN 15 mg/dL (7-18); CALCIUM 8.8 MG/DL (8.5-10.1); CARBON DIOXIDE 22 MMOL/L (21-32); CHLORIDE 108 MMOL/L (98-107); CREATININE 1.1 MG/DL (0.55-1.30); PHOSPHORUS 3.1 MG/DL (2.5-4.9); POTASSIUM 3.7 MMOL/L (3.5-5.1); SODIUM 137 MMOL/L (136-145)
--- NOTE | 2017-11-26 07:21 | Pulmonology Progress Note ---
Assessment/Plan Assessment/Plan ASSESSMENT Chest pain due to angina elevated troponin CAD with hx of CABG CHF moderate MR HTN Hx of CVA anemia Bladder Ca sacrococcyx DTI POA Rachael rash perineal area PLAN OF CARE tele serial troponin with small elevation and trending down, no ischemic changes on ECG cardio eval appreciated per cardio troponin did not reach level to be indicative of NE ECHO with pEF 55% and RVSP of 33, mild to moderate MR Lipid panel stable dual a/PLT therapy BB, statin, Isordil, Renvela BP management with CCB and BB gentle diuresis, monitor cardiorenal parameters volumes per cardio prone to chronic angina sx no utility of stress test ( see cardio note) per cardio he is prone to having anginal sx chronically based on the prior cardiac w/up O2 HHN prn, titrate IVF monitor renal parameters, lytes; correct lytes as needed monitor counts, iron supplements GI prophylaxis wound care as per wound nurse recs dc plan for tomorrow if stable and cleared by cardio case discussed and evaluated by supervising physician Subjective Allergies: Coded Allergies: No Known Allergies (Unverified , 11/24/17) Subjective denies CP SOB on RA sat stable Objective Last 24 Hour Vital Signs Date Time Temp Pulse Resp B/P (MAP) Pulse Ox O2 Delivery O2 Flow Rate FiO2 11/26/17 05:48 71 18 Room Air 21 11/26/17 04:00 97.5 71 20 108/50 98 Room Air 97.5 11/26/17 04:00 69 11/26/17 00:00 69 11/26/17 00:00 97.3 70 20 102/56 98 Room Air 97.3 11/25/17 21:00 76 110/49 11/25/17 20:00 97.1 76 20 110/49 100 Room Air 97.1 11/25/17 20:00 69 11/25/17 16:00 64 11/25/17 16:00 97.2 71 19 111/51 100 Room Air 97.2 11/25/17 12:01 97.0 77 20 114/53 99 Room Air 99 97.0 11/25/17 12:00 74 11/25/17 10:31 77 132/55 11/25/17 10:27 77 132/55 11/25/17 08:00 74 11/25/17 08:00 97.5 77 22 132/55 98 Room Air 98 97.5 Intake and Output 11/25/17 11/26/17 19:00 07:00 Intake Total 525 ml Output Total 100 ml 800 ml Balance -100 ml -275 ml IV Total 525 ml Output Urine Total 100 ml 800 ml # Bowel Movements 1 1 General Appearance: no acute distress, other - awake, alert, responsive HEENT: normocephalic, atraumatic, anicteric Respiratory/Chest: lungs clear Cardiovascular: normal peripheral pulses, normal rate - SR on tele , regular rhythm Extremities: no edema, pedal pulses normal Neurologic/Psychiatric: alert, responsive Musculoskeletal: atrophy - BLE Laboratory Tests 11/25/17 10:00: Total Bilirubin 0.3, Direct Bilirubin 0.1, Aspartate Amino Transf (AST/SGOT) 21 , Alanine Aminotransferase (ALT/SGPT) 22, Alkaline Phosphatase 67, Troponin I 0.101H, Total Protein 6.0L, Albumin 2.1L, Triglycerides Level 159H, Cholesterol Level 111, LDL Cholesterol 60, HDL Cholesterol 26L, Cholesterol/HDL Ratio 4.3, Thyroid Stimulating Hormone (TSH) 3.552 11/26/17 03:30: Total Bilirubin 0.3, Aspartate Amino Transf (AST/SGOT) 17, Alanine Aminotransferase (ALT/SGPT) 20, Alkaline Phosphatase 69, Total Protein 6.8, Albumin 1.9L, White Blood Count 5.7, Red Blood Count 2.76L, Hemoglobin 9.2L, Hematocrit 27.5L, Mean Corpuscular Volume 100H, Mean Corpuscular Hemoglobin 33.5H, Mean Corpuscular Hemoglobin Concent 33.6, Red Cell Distribution Width 14.2, Platelet Count 249, Mean Platelet Volume 7.3, Neutrophils (%) (Auto) 79.8H , Lymphocytes (%) (Auto) 9.4L, Monocytes (%) (Auto) 8.9, Eosinophils (%) (Auto) 0.9, Basophils (%) (Auto) 1.1, Sodium Level 137, Potassium Level 3.7, Chloride Level 108H, Carbon Dioxide Level 22, Anion Gap 7, Blood Urea Nitrogen 15, Creatinine 1.1, Estimat Glomerular Filtration Rate , Glucose Level 103, Calcium Level 8.8, Phosphorus Level 3.1, Magnesium Level 1.5L, Globulin 4.9, Albumin/ Globulin Ratio 0.4L Current Medications Medications (Trade) Dose Ordered Sig/Kadi Route PRN Reason Start Time Stop Time Status Last Admin Dose Admin Acetaminophen (Tylenol) 325 mg Q6H PRN ORAL For Pain Level <=5 11/25/17 08:45 12/25/17 08:44 Albuterol Sulfate (Proventil) 2.5 mg Q4H PRN HHN Shortness of Breath 11/25/17 08:45 11/30/17 08:44 Amlodipine Besylate (Norvasc) 5 mg DAILY ORAL 11/25/17 09:00 12/25/17 08:59 11/25/17 10:31 Aspirin (ASA) 81 mg DAILY ORAL 11/25/17 09:00 12/25/17 08:59 11/25/17 10:26 Atorvastatin Calcium (Lipitor) 20 mg BEDTIME ORAL 11/25/17 21:00 12/25/17 20:59 11/25/17 22:13 Bisacodyl (Dulcolax) 10 mg PRN RECTAL 11/25/17 08:45 12/25/17 08:44 UNV Carvedilol (Coreg) 3.125 mg EVERY 12 HOURS ORAL 11/25/17 09:00 12/25/17 08:59 11/25/17 10:27 Clopidogrel Bisulfate (Plavix) 75 mg DAILY ORAL 11/25/17 09:00 12/25/17 08:59 11/25/17 10:30 Clotrimazole (Lotrimin) 1 applic EVERY 12 HOURS TOPIC 11/25/17 21:00 12/25/17 20:59 11/25/17 22:12 Dextrose/Sodium Chloride 1,000 ml @ 75 mls/hr [id number] IV 11/25/17 08:30 12/25/17 08:29 11/25/17 21:50 Docusate Sodium (Colace) 200 mg DAILY ORAL 11/25/17 09:00 12/25/17 08:59 11/25/17 10:28 Fluoxetine HCl (PROzac) 20 mg DAILY ORAL 11/25/17 09:00 12/25/17 08:59 11/25/17 10:29 Folic Acid (Folate) 1 mg DAILY ORAL 11/25/17 09:00 12/25/17 08:59 11/25/17 10:28 Furosemide (Lasix) 10 mg DAILY ORAL 11/25/17 09:00 12/25/17 08:59 11/25/17 10:28 Loperamide HCl (Imodium) 2 mg Q6HR PRN ORAL Diarrhea 11/25/17 08:45 12/25/17 08:44 Magnesium Hydroxide (Mom) 30 ml PRN ORAL 11/25/17 08:45 12/25/17 08:44 UNV Multivitamins (Multivitamins) 1 tab DAILY ORAL 11/25/17 09:00 12/25/17 08:59 11/25/17 10:30 Pantoprazole (Protonix) 40 mg DAILY ORAL 11/25/17 09:00 12/25/17 08:59 11/25/17 10:30 Potassium Chloride (K-Dur) 20 meq DAILY ORAL 11/25/17 09:00 12/25/17 08:59 11/25/17 10:28 Quetiapine Fumarate (SEROquel) 12.5 mg EVERY 8 HOURS ORAL 11/25/17 22:00 12/25/17 21:59 11/26/17 05:56 Ranolazine (Ranexa ER 500mg) 1,000 mg EVERY 12 HOURS ORAL 11/25/17 09:00 12/25/17 08:59 11/25/17 22:13 Sodium Citrate (Bicitra) 15 ml QID ORAL 11/25/17 09:00 12/25/17 08:59 11/25/17 22:12 Vitamin A/Vitamin D (A & D Oint) 1 applic EVERY 12 HOURS TOPIC 11/25/17 21:00 12/25/17 20:59 11/25/17 22:12 Bianca Barnett NP (Vanchtein) Nov 26, 2017 07:20
[2017-11-26] MEDS ORDERED: Albuterol/Ipratropium 3ml neb HHN PRN (07:30)
[2017-11-26 08:00] VITALS: BP 110/51
[2017-11-26] MEDS: Docusate 100mg cap ORAL SCH (09:00)
[2017-11-26] MEDS: Sodium Citrate 30ml ORAL SCH (09:00)
[2017-11-26] MEDS: Aspirin Baby 81mg ORAL SCH (09:00)
[2017-11-26] MEDS: Vitamin A&D Oint 2oz Tube TOPIC SCH ×2 (09:02→21:00)
--- NOTE | 2017-11-26 11:03 | Cardiology Progress Note ---
Assessment/Plan Assessment/Plan ? 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 failed pci 2016 pt treated medically not sure any thing can be done the assay here for cardiac enzymes identifies mild trop abn not yet reach level of mi by WHO criteria he denies any cp keep on ecotrin plavix statin isordil, ranexa , bb for now not sure about utility of repeating ischemia evaluation for now follow trop trends he is prone to havign anginal sx chronically based on the prior cardiac bates [id number] Objective Last 24 Hour Vital Signs Date Time Temp Pulse Resp B/P (MAP) Pulse Ox O2 Delivery O2 Flow Rate FiO2 11/26/17 09:01 73 110/51 11/26/17 09:01 73 110/51 11/26/17 08:00 97.7 73 18 110/51 97 Room Air 97.7 11/26/17 07:30 70 18 Room Air 21 11/26/17 05:48 71 18 Room Air 21 11/26/17 04:00 97.5 71 20 108/50 98 Room Air 97.5 11/26/17 04:00 69 11/26/17 00:00 69 11/26/17 00:00 97.3 70 20 102/56 98 Room Air 97.3 11/25/17 21:00 76 110/49 11/25/17 20:00 97.1 76 20 110/49 100 Room Air 97.1 11/25/17 20:00 69 11/25/17 16:00 64 11/25/17 16:00 97.2 71 19 111/51 100 Room Air 97.2 11/25/17 12:01 97.0 77 20 114/53 99 Room Air 99 97.0 11/25/17 12:00 74 Intake and Output 11/25/17 11/26/17 19:00 07:00 Intake Total 525 ml Output Total 100 ml 800 ml Balance -100 ml -275 ml IV Total 525 ml Output Urine Total 100 ml 800 ml # Bowel Movements 1 1 Laboratory Tests Test 11/26/17 03:30 11/26/17 09:30 White Blood Count 5.7 K/UL (4.8-10.8) Red Blood Count 2.76 M/UL (4.70-6.10) L Hemoglobin 9.2 G/DL (14.2-18.0) L Hematocrit 27.5 % (42.0-52.0) L Mean Corpuscular Volume 100 FL (80-99) H Mean Corpuscular Hemoglobin 33.5 PG (27.0-31.0) H Mean Corpuscular Hemoglobin Concent 33.6 G/DL (32.0-36.0) Red Cell Distribution Width 14.2 % (11.6-14.8) Platelet Count 249 K/UL (150-450) Mean Platelet Volume 7.3 FL (6.5-10.1) Neutrophils (%) (Auto) 79.8 % (45.0-75.0) H Lymphocytes (%) (Auto) 9.4 % (20.0-45.0) L Monocytes (%) (Auto) 8.9 % (1.0-10.0) Eosinophils (%) (Auto) 0.9 % (0.0-3.0) Basophils (%) (Auto) 1.1 % (0.0-2.0) Sodium Level 137 MMOL/L (136-145) Potassium Level 3.7 MMOL/L (3.5-5.1) Chloride Level 108 MMOL/L (98-107) H Carbon Dioxide Level 22 MMOL/L (21-32) Anion Gap 7 mmol/L (5-15) Blood Urea Nitrogen 15 mg/dL (7-18) Creatinine 1.1 MG/DL (0.55-1.30) Estimat Glomerular Filtration Rate mL/min (>60) Glucose Level 103 MG/DL (74-106) Calcium Level 8.8 MG/DL (8.5-10.1) Phosphorus Level 3.1 MG/DL (2.5-4.9) Magnesium Level 1.5 MG/DL (1.8-2.4) L Total Bilirubin 0.3 MG/DL (0.2-1.0) Aspartate Amino Transf (AST/SGOT) 17 U/L (15-37) Alanine Aminotransferase (ALT/SGPT) 20 U/L (12-78) Alkaline Phosphatase 69 U/L (46-116) Total Protein 6.8 G/DL (6.4-8.2) Albumin 1.9 G/DL (3.4-5.0) L Globulin 4.9 g/dL Albumin/Globulin Ratio 0.4 (1.0-2.7) L Troponin I 0.061 ng/mL (0.000-0.056) BLAZE JAMISON Nov 26, 2017 11:03
[2017-11-26] MEDS: D5NS 1,000 ML IV SCH (11:09)
[2017-11-26] MEDS: Ranolazine 500mg tab ORAL SCH ×2 (11:09→23:16)
[2017-11-26 12:00] VITALS: BP 115/50
[2017-11-26] MEDS ORDERED: ALPRAZolam 0.5mg tab ORAL PRN (16:45)
[2017-11-26 20:00] VITALS: BP 114/46
[2017-11-26] MEDS: Metoprolol Tartrate 12.5mg TAB ORAL SCH (21:00)
--- NOTE | 2017-11-26 23:00 | Consultation ---
DATE OF CONSULTATION: 11/26/2017 CARDIOLOGY CONSULTATION CONSULTING PHYSICIAN: Gonzalez Mai M.D. REFERRING PHYSICIAN: David Collado M.D. REASON FOR REFERRAL: Chest pain. HISTORY OF PRESENT ILLNESS: This is an elderly gentleman, 77 years old, who has had history of coronary artery disease, coronary artery bypass grafting, and significant complications as detailed below. The patient is a resident of [facility], was transferred from [facility] to the emergency room at [facility] with a chief complaint of chest pain apparently. The patient at this time denies having had any chest pain. There is no shortness of breath. There is no PND. He tells me that he has been nonambulatory since an accident at home when he fell approximately two weeks ago. In either case, it appears on review of the emergency room data and Dr. Collado's data that he had several episodes of chest pain and anxiety at the [facility] facility and he presented because of those chest pains to the hospital here at the emergency room. He denies any pain again at this time. There is no PND or orthopnea. He denies any palpitation. Denies any dizziness or lightheadedness. PAST MEDICAL HISTORY: His past medical history is extensive. Recently hospitalized at [facility] with a diagnoses of sepsis secondary to gram-negative bacteremia, abdominal pain secondary to colitis; respiratory failure; pneumonia; chronic metabolic acidosis; chronic diastolic heart failure with preserved ejection fraction; acute kidney injury with tubular necrosis on chronic kidney disease; elevated lipase without evidence of pancreatitis; anemia; hypokalemia; hypomagnesemia; hypophosphatemia; hypocalcemia; history of coronary artery disease; obesity; MRSA, positive nares; history of COPD; hyperlipidemia; benign prostatic hypertrophy, status post TURP; status post cholecystectomy. His coronary artery disease data is significant for coronary artery bypass grafting seven years ago at [facility]. In 2016, apparently, he had an attempt at percutaneous coronary intervention by Dr. Poole. The catheterization at that time showed distal left main was severely diseased with occlusion at the ostium of the LAD 99% proximal occlusion with microchannel filling diagonal vessels with calcification throughout the proximal and mid LAD, circumflex artery 99% subtotal proximal occlusion, microchannels filling the AV groove circumflex and right coronary artery subtotal occlusion at the mid right coronary artery, recanalized SAFETY DEPOSIT CLERK. There was a NGUYEN to LAD that was patent. No focal stenosis. Radial to obtuse marginal was basically patent. An attempt was made to intervene on the right coronary artery itself, but that apparently failed. The patient subsequently after the cardiac catheterization underwent a myocardial perfusion imaging in 2016 that showed 37% reversible defect and 3% fixed defect with the largest severe defect in the inferoseptal and inferior wall. Because of the failed attempt at treatment of the right coronary artery, the patient was treated with Ranexa at that time. During this hospitalizations after here at [facility], he has had some abnormality. PAST SURGICAL HISTORY: Coronary artery bypass grafting, left carotid endarterectomy, appendectomy, and tonsillectomy. ALLERGIES: None. FAMILY HISTORY: No premature coronary artery disease in first-degree relatives. SOCIAL HISTORY: He is a former smoker, quit multiple years ago. He used to drink some alcoholic beverages. At the present time, he lives in a convalescent facility. REVIEW OF SYSTEMS: GASTROINTESTINAL: Positive for diarrhea and black stools. GENITOURINARY: Denies. PULMONARY: Denies. CONSTITUTIONAL: Denies. NEUROLOGIC: He states he is unable to walk since his accident two weeks ago. PHYSICAL EXAMINATION: GENERAL: Shows him to be elderly gentleman, in no respiratory distress. HEENT: Unremarkable. NECK: Supple. No jugular venous distention. LUNGS: Clear to auscultation and percussion. CARDIAC: Showed S1 is normal. S2 is normal. Regular rate and rhythm. Systolic ejection murmur. There is no RV lift, heaves, or thrills noted. ABDOMEN: Soft and nontender. Positive bowel sounds. EXTREMITIES: There is no clubbing, cyanosis, nor is there any edema. NEUROLOGICAL: He appears to be awake and responsive and in no respiratory distress. LABORATORY VALUES AND DIAGNOSTIC DATA: He has a white count of 5.7, hemoglobin 9.2, and the platelet count of 249,000. His sodium is 137, potassium 3.7, chloride 108, bicarbonate 22, BUN of 15, creatinine 1.1, and glucose of 103. Magnesium of 1.5. AST and ALT within normal limits. His troponins are 0.129, 0.10, and 0.061. His total cholesterol is 111 with LDL of 16 and HDL of 26. TSH of 3.52. His INR is 1.1 and a PTT of 22. His urinalysis appears fairly unremarkable. An x-ray was performed in the emergency room that shows interstitial prominence, nonspecific. ASSESSMENT AND PLAN: 1. Coronary artery disease, status post coronary bypass grafting with patent grafts to obtuse marginal and left main as of 2016 with large right coronary artery ischemic burden, failed intervention. 2. History of congestive heart failure with preserved systolic function. 3. Renal insufficiency. 4. Electrolyte abnormalities. 5. Obesity. 6. Possible chest pain noted. Dr Collado, this patient was seen in cardiac consultation. The patient does have a history of coronary artery disease as noted above in 2016. He has significant ischemic burden with failed attempt at percutaneous coronary intervention of right coronary artery, 37% ischemic burden in 2016. This patient at this time denies any chest pain, but did admit to having some chest pains in the emergency room. His cardiac enzymes are minimally abnormal, but at this time still not reached the level of infarction based on . His electrocardiogram shows really no ST or T-wave abnormalities of any significant degree and appears relatively unchanged since the last EKG back in 2016. In light of the fact that he has a known large ischemic defect that was not treatable previously, I am not sure much can be offered except for medication. He will be deemed to have intermittent angina, but his two vessels were patent in 2016, NGUYEN as well as the radial grafts. The remainder of the left anterior descending artery and circumflex artery have only ischemic burden as the right coronary artery again failed intervention. We will follow up with the cardiac enzymes. I will review the echocardiogram to see if there is any new wall motion abnormalities. It should be noted that this information was obtained from review of the [facility] records as well. He has had another treating respiratory care practitioner, Dr. Segal, who has seen him before. We will discuss the case with him as well. The patient should be maintained on aspirin and statins and would consider administration of beta-blockers, although he is on Coreg. My preference would be because he has normal LV function that we put him on metoprolol instead. He apparently has previous occasions been on amiodarone, but that was discontinued because of his QT abnormalities. He should be on pravastatin that he was taking before and as well as isosorbide mononitrate. He has been on dual antiplatelet therapy before, which I will resume for the time being, but definitely, he needs is to be treated medically as he had failed attempted intervention. Gonzalez Mai M.D. DR: Augustin JOB#: [id number] CC:
[2017-11-26] MEDS: Atorvastatin 20mg tab ORAL SCH (23:16)
[2017-11-26 23:34] VITALS: BP 107/45
[2017-11-27] MEDS: D5NS 1,000 ML IV SCH ×2 (00:30→09:15)
[2017-11-27 04:00] VITALS: BP 115/53
[2017-11-27 08:00] VITALS: BP 104/50
[2017-11-27] MEDS: Docusate 100mg cap ORAL SCH (08:50)
[2017-11-27] MEDS: Metoprolol Tartrate 12.5mg TAB ORAL SCH ×2 (08:51→21:00)
[2017-11-27] MEDS: Ranolazine 500mg tab ORAL SCH ×2 (08:51→21:30)
[2017-11-27] MEDS: Vitamin A&D Oint 2oz Tube TOPIC SCH ×2 (08:52→21:35)
--- NOTE | 2017-11-27 09:24 | General Progress Note ---
Assessment/Plan Problem List: (1) Bladder carcinoma ICD Codes: C67.9 - Malignant neoplasm of bladder, unspecified SNOMED: 053070936 (2) HTN (hypertension) ICD Codes: I10 - Essential (primary) hypertension SNOMED: 66144774 (3) GERD (gastroesophageal reflux disease) ICD Codes: K21.9 - Gastro-esophageal reflux disease without esophagitis SNOMED: 646122610 (4) Anemia ICD Codes: D64.9 - Anemia, unspecified SNOMED: 258885282 (5) Colonoscopy planned SNOMED: 583573453 Assessment/Plan plan EGd and colonoscopy tomorrow if cleared by cardiology Subjective ROS Limited/Unobtainable: No Allergies: Coded Allergies: No Known Allergies (Unverified , 11/24/17) Objective Last 24 Hour Vital Signs Date Time Temp Pulse Resp B/P (MAP) Pulse Ox O2 Delivery O2 Flow Rate FiO2 11/27/17 08:51 84 104/50 11/27/17 08:51 84 104/50 11/27/17 08:00 97.6 84 21 104/50 93 Room Air 97.6 11/27/17 04:00 97.7 83 20 115/53 96 97.7 11/27/17 04:00 82 11/27/17 02:39 82 18 Room Air 21 11/27/17 00:00 82 11/26/17 23:34 97.9 82 18 107/45 100 97.9 11/26/17 21:00 73 114/46 11/26/17 20:00 78 11/26/17 20:00 97.0 73 20 114/46 100 97.0 11/26/17 16:00 74 11/26/17 12:00 69 11/26/17 12:00 98.0 71 21 115/50 98 Room Air 98.0 Intake and Output 11/26/17 11/27/17 19:00 07:00 Intake Total 500 ml Output Total 1040 ml Balance 500 ml -1040 ml Intake Oral 500 ml Output Urine Total 1040 ml # Voids 1 # Bowel Movements 1 3 Laboratory Tests 11/26/17 09:30: Troponin I 0.061H Height (Feet): 5 Height (Inches): 7.00 Weight (Pounds): 194 General Appearance: no apparent distress EENT: normal ENT inspection Neck: supple Cardiovascular: normal rate Respiratory/Chest: decreased breath sounds Abdomen: normal bowel sounds, non tender, soft Extremities: non-tender JHON VILLALTA Nov 27, 2017 09:24
[2017-11-27 11:56] LABS: BASOPHILS % (AUTO) 0.8 % (0.0-2.0); EOSINOPHILS % (AUTO) 0.5 % (0.0-3.0); HEMATOCRIT 24.4 % (42.0-52.0); HEMOGLOBIN 8.1 G/DL (14.2-18.0); LYMPHOCYTES % (AUTO) 9.1 % (20.0-45.0); MEAN CORPUSCULAR VOLUME 99 FL (80-99); MONOCYTES % (AUTO) 6.9 % (1.0-10.0); NEUTROPHILS % (AUTO) 82.8 % (45.0-75.0); PLATELET COUNT 295 K/UL (150-450); RED BLOOD COUNT 2.47 M/UL (4.70-6.10); RED CELL DISTRIBUTION WIDTH 14.2 % (11.6-14.8); WHITE BLOOD COUNT 5.9 K/UL (4.8-10.8)
[2017-11-27 12:00] VITALS: BP 97/43
[2017-11-27 12:10] LABS: ANION GAP 11 mmol/L (5-15); BLOOD UREA NITROGEN 11 mg/dL (7-18); CALCIUM 8.5 MG/DL (8.5-10.1); CARBON DIOXIDE 17 MMOL/L (21-32); CHLORIDE 111 MMOL/L (98-107); CREATININE 1.1 MG/DL (0.55-1.30); POTASSIUM 3.3 MMOL/L (3.5-5.1); SODIUM 139 MMOL/L (136-145)
[2017-11-27 12:12] LABS: % IRON SATURATION 14 % (15-50); IRON 16 ug/dL (50-175); TOTAL IRON BINDING CAPACITY 112 ug/dL (250-450)
--- NOTE | 2017-11-27 12:48 | Cardiology Progress Note ---
Assessment/Plan Assessment/Plan 1. Coronary artery disease, status post coronary bypass grafting with patent grafts to obtuse marginal and LAD as of 2016 chronic totoal occlusion of RCA 2.large right coronary artery ischemic burden 37% , failed intervention. 3. Renal insufficiency. 4. Electrolyte abnormalities. 5. Obesity. 6. Possible chest pain noted. 7. History of congestive heart failure with preserved systolic the assay here for cardiac enzymes identifies mild trop abn not yet reach level of mi by WHO criteria he denies any cp still today keep on ecotrin plavix statin isordil, ranexa , bb for now he will likely be prone to episodic cp with angian as far as risk of colonscopy is concerned he is considered lwo - intermediate risk of perioperative morbidity Subjective Cardiovascular: Denies: chest pain, lightheadedness, palpitations Respiratory: Denies: shortness of breath Gastrointestinal/Abdominal: Denies: abdominal pain Genitourinary: Denies: burning Objective Last 24 Hour Vital Signs Date Time Temp Pulse Resp B/P (MAP) Pulse Ox O2 Delivery O2 Flow Rate FiO2 11/27/17 12:00 97.2 72 22 97/43 98 Room Air 97.2 11/27/17 08:51 84 104/50 11/27/17 08:51 84 104/50 11/27/17 08:00 97.6 84 21 104/50 93 Room Air 97.6 11/27/17 08:00 84 11/27/17 04:00 97.7 83 20 115/53 96 97.7 11/27/17 04:00 82 11/27/17 02:39 82 18 Room Air 21 11/27/17 00:00 82 11/26/17 23:34 97.9 82 18 107/45 100 97.9 11/26/17 21:00 73 114/46 11/26/17 20:00 78 11/26/17 20:00 97.0 73 20 114/46 100 97.0 11/26/17 16:00 74 General Appearance: alert Neck: supple Cardiovascular: normal rate Respiratory/Chest: lungs clear Abdomen: normal bowel sounds, non tender, soft Extremities: no swelling Intake and Output 11/26/17 11/27/17 19:00 07:00 Intake Total 500 ml Output Total 1040 ml Balance 500 ml -1040 ml Intake Oral 500 ml Output Urine Total 1040 ml # Voids 1 # Bowel Movements 1 3 Laboratory Tests Test 11/27/17 11:35 White Blood Count 5.9 K/UL (4.8-10.8) Red Blood Count 2.47 M/UL (4.70-6.10) L Hemoglobin 8.1 G/DL (14.2-18.0) L Hematocrit 24.4 % (42.0-52.0) L Mean Corpuscular Volume 99 FL (80-99) Mean Corpuscular Hemoglobin 32.9 PG (27.0-31.0) H Mean Corpuscular Hemoglobin Concent 33.3 G/DL (32.0-36.0) Red Cell Distribution Width 14.2 % (11.6-14.8) Platelet Count 295 K/UL (150-450) Mean Platelet Volume 6.4 FL (6.5-10.1) L Neutrophils (%) (Auto) 82.8 % (45.0-75.0) H Lymphocytes (%) (Auto) 9.1 % (20.0-45.0) L Monocytes (%) (Auto) 6.9 % (1.0-10.0) Eosinophils (%) (Auto) 0.5 % (0.0-3.0) Basophils (%) (Auto) 0.8 % (0.0-2.0) Sodium Level 139 MMOL/L (136-145) Potassium Level 3.3 MMOL/L (3.5-5.1) L Chloride Level 111 MMOL/L (98-107) H Carbon Dioxide Level 17 MMOL/L (21-32) L Anion Gap 11 mmol/L (5-15) Blood Urea Nitrogen 11 mg/dL (7-18) Creatinine 1.1 MG/DL (0.55-1.30) Estimat Glomerular Filtration Rate mL/min (>60) Glucose Level 121 MG/DL (74-106) H Calcium Level 8.5 MG/DL (8.5-10.1) Magnesium Level 1.9 MG/DL (1.8-2.4) Iron Level 16 ug/dL (50-175) L Total Iron Binding Capacity 112 ug/dL (250-450) L Percent Iron Saturation 14 % (15-50) L Unsaturated Iron Binding 96 ug/dL (112-346) L Troponin I 0.043 ng/mL (0.000-0.056) Pro-B-Type Natriuretic Peptide 3442 pg/mL (0-125) H Microbiology Date/Time Source Procedure Growth Status 11/24/17 19:50 Nasal Nares MRSA Culture - Final NO METHICILLIN RESISTANT STAPH AUREUS... Complete 11/24/17 19:50 Rectum VRE Culture - Final Enterococcus Faecium - Vre Complete BLAZE JAMISON Nov 27, 2017 12:48
--- NOTE | 2017-11-27 13:58 | Pulmonology Progress Note ---
Assessment/Plan Assessment/Plan ASSESSMENT Chest pain due to angina elevated troponin CAD with hx of CABG CHF moderate MR HTN Hx of CVA anemia Bladder Ca sacrococcyx DTI POA Rachael rash perineal area PLAN OF CARE tele serial troponin with small elevation and trending down, no ischemic changes on ECG cardio eval appreciated per cardio troponin did not reach level to be indicative of GA per cardio he is prone to having anginal sx chronically based on the prior cardiac w/up ECHO with pEF 55% and RVSP of 33, mild to moderate MR Lipid panel stable dual a/PLT therapy BB, statin, Isordil, Renvela BP management with CCB and BB gentle diuresis, monitor cardiorenal parameters volumes per cardio prone to chronic angina sx no utility of stress test ( see cardio note) cardio stated low to intermediate risk for GI procedure GI follows plan for EGD, coloscopy am O2 HHN prn, titrate IVF monitor renal parameters, lytes; correct lytes as needed monitor counts, iron supplements anemia w/up c/w anemia of chronic disease GI prophylaxis wound care as per wound nurse recs case discussed and evaluated by supervising physician Subjective Allergies: Coded Allergies: No Known Allergies (Unverified , 11/24/17) Subjective denies CP SOB on RA sat stable Objective Last 24 Hour Vital Signs Date Time Temp Pulse Resp B/P (MAP) Pulse Ox O2 Delivery O2 Flow Rate FiO2 11/27/17 12:00 97.2 72 22 97/43 98 Room Air 97.2 11/27/17 08:51 84 104/50 11/27/17 08:51 84 104/50 11/27/17 08:00 97.6 84 21 104/50 93 Room Air 97.6 11/27/17 08:00 84 11/27/17 04:00 97.7 83 20 115/53 96 97.7 11/27/17 04:00 82 11/27/17 02:39 82 18 Room Air 21 11/27/17 00:00 82 11/26/17 23:34 97.9 82 18 107/45 100 97.9 11/26/17 21:00 73 114/46 11/26/17 20:00 78 11/26/17 20:00 97.0 73 20 114/46 100 97.0 11/26/17 16:00 74 Intake and Output 11/26/17 11/27/17 19:00 07:00 Intake Total 500 ml Output Total 1040 ml Balance 500 ml -1040 ml Intake Oral 500 ml Output Urine Total 1040 ml # Voids 1 # Bowel Movements 1 3 Objective General Appearance: no acute distress, other - awake, alert, responsive HEENT: normocephalic, atraumatic, anicteric Respiratory/Chest: lungs clear Cardiovascular: normal peripheral pulses, normal rate - SR on tele , regular rhythm Extremities: no edema, pedal pulses normal Neurologic/Psychiatric: alert, responsive Musculoskeletal: atrophy - BLE Microbiology Date/Time Source Procedure Growth Status 11/24/17 19:50 Nasal Nares MRSA Culture - Final NO METHICILLIN RESISTANT STAPH AUREUS... Complete 11/24/17 19:50 Rectum VRE Culture - Final Enterococcus Faecium - Vre Complete Laboratory Tests 11/27/17 11:35: White Blood Count 5.9, Red Blood Count 2.47L, Hemoglobin 8.1L, Hematocrit 24.4L , Mean Corpuscular Volume 99, Mean Corpuscular Hemoglobin 32.9H, Mean Corpuscular Hemoglobin Concent 33.3, Red Cell Distribution Width 14.2, Platelet Count 295, Mean Platelet Volume 6.4L, Neutrophils (%) (Auto) 82.8H, Lymphocytes (%) (Auto) 9.1L, Monocytes (%) (Auto) 6.9, Eosinophils (%) (Auto) 0.5, Basophils (%) (Auto) 0.8, Sodium Level 139, Potassium Level 3.3L, Chloride Level 111H, Carbon Dioxide Level 17L, Anion Gap 11, Blood Urea Nitrogen 11, Creatinine 1.1, Estimat Glomerular Filtration Rate , Glucose Level 121H, Calcium Level 8.5, Magnesium Level 1.9, Iron Level 16L, Total Iron Binding Capacity 112L, Percent Iron Saturation 14L, Unsaturated Iron Binding 96L, Troponin I 0.043, Pro-B-Type Natriuretic Peptide 3442H Current Medications Medications (Trade) Dose Ordered Sig/Kadi Route PRN Reason Start Time Stop Time Status Last Admin Dose Admin Acetaminophen (Tylenol) 325 mg Q6H PRN ORAL For Pain Level <=5 11/25/17 08:45 12/25/17 08:44 11/27/17 10:27 Albuterol/ Ipratropium (Albuterol/ Ipratropium) 3 ml Q4HRT PRN HHN sob 3/3/18 07:30 12/01/17 07:29 Alprazolam (Xanax) 0.5 mg THREE TIMES A DAY PRN ORAL anxiety 11/26/17 16:45 12/03/17 16:44 11/27/17 02:36 Aspirin (ASA) 81 mg DAILY ORAL 11/29/17 09:00 12/29/17 08:59 Atorvastatin Calcium (Lipitor) 40 mg BEDTIME ORAL 11/26/17 21:00 12/26/17 20:59 11/26/17 23:16 Bisacodyl (Dulcolax) 10 mg DAILY PRN RECTAL CONSTIPATION 11/25/17 08:45 12/25/17 08:44 Clopidogrel Bisulfate (Plavix) 75 mg DAILY ORAL 11/29/17 09:00 12/29/17 08:59 Clotrimazole (Lotrimin) 1 applic EVERY 12 HOURS TOPIC 11/25/17 21:00 12/25/17 20:59 11/27/17 08:53 Dextrose/Sodium Chloride 1,000 ml @ 75 mls/hr [id number] IV 11/25/17 08:30 12/25/17 08:29 11/27/17 09:15 Docusate Sodium (Colace) 200 mg DAILY ORAL 11/25/17 09:00 12/25/17 08:59 11/27/17 08:50 Fluoxetine HCl (PROzac) 20 mg DAILY ORAL 11/25/17 09:00 12/25/17 08:59 11/26/17 09:00 Folic Acid (Folate) 1 mg DAILY ORAL 11/25/17 09:00 12/25/17 08:59 11/27/17 08:50 Furosemide (Lasix) 10 mg DAILY ORAL 11/25/17 09:00 12/25/17 08:59 11/27/17 08:51 Loperamide HCl (Imodium) 2 mg Q6HR PRN ORAL Diarrhea 11/25/17 08:45 12/25/17 08:44 Magnesium Hydroxide (Mom) 30 ml DAILY PRN ORAL CONSTIPATION 11/25/17 08:45 12/25/17 08:44 Metoprolol Tartrate (Lopressor) 12.5 mg Q12HR ORAL 11/26/17 21:00 12/26/17 20:59 11/27/17 08:51 Multivitamins (Multivitamins) 1 tab DAILY ORAL 11/25/17 09:00 12/25/17 08:59 11/27/17 08:50 Pantoprazole (Protonix) 40 mg DAILY ORAL 11/25/17 09:00 12/25/17 08:59 11/27/17 08:50 Potassium Chloride (K-Dur) 20 meq DAILY ORAL 11/25/17 09:00 12/25/17 08:59 11/27/17 08:50 Quetiapine Fumarate (SEROquel) 12.5 mg EVERY 8 HOURS ORAL 11/25/17 22:00 12/25/17 21:59 11/26/17 23:17 Ranolazine (Ranexa ER 500mg) 1,000 mg EVERY 12 HOURS ORAL 11/25/17 09:00 12/25/17 08:59 11/27/17 08:51 Vitamin A/Vitamin D (A & D Oint) 1 applic EVERY 12 HOURS TOPIC 11/25/17 21:00 12/25/17 20:59 11/27/17 08:52 Anibal (Randee)Bianca NP Nov 27, 2017 13:58
--- NOTE | 2017-11-27 14:44 | Cardiology Report ---
APPROVED REPORT EXAM: Two-dimensional and M-mode echocardiogram with Doppler and color Doppler. INDICATION Chest Pain M-Mode DIMENSIONS IVSd1.1 (0.7-1.1cm)Left Atrium (MM)5.1 (1.6-4.0cm) LVDd4.7 (3.5-5.6cm)Aortic Root3.0 (2.0-3.7cm) PWd1.0 (0.7-1.1cm)Aortic Cusp Exc.1.6 (1.5-2.0cm) LVDs3.5 (2.5-4.0cm) PWs1.5 cm Normal left ventricular chamber size, systolic function and wall motion. Left ventricular ejection fraction estimated to be 55 %. Borderline left ventricular hypertrophy. Anterior Echo-free space, may be due to pericardial fat or effusion. Mild left atrial enlargement. Right cardiac chamber sizes are within normal limits. Focal aortic valve sclerosis with adequate cusp excursion. Thickened mitral valve leaflets with normal excursion. Mild mitral annulus and aortic root calcification. Normal pulmonic valve structure. Normal tricuspid valve structure. IVC dilated at 1.8 cm with physiological collapse. A color flow and spectral Doppler study was performed and revealed: Moderate aortic insufficiency. Mild to moderate mitral regurgitation. Normal left ventricular diastolic function. Mild tricuspid regurgitation. Tricuspid systolic velocities suggests peak right ventricular systolic pressure of 33 mmHg. Trace pulmonic regurgitation present.
[2017-11-27 16:00] VITALS: BP 103/44
[2017-11-27] MEDS ORDERED: Tubing IV Secondary IV ONE (17:23)
[2017-11-27] MEDS ORDERED: NS 275ml ONE (17:23)
[2017-11-27] MEDS ORDERED: D5NS 1000ml IV ONE (17:23)
[2017-11-27 20:00] VITALS: BP 107/69
[2017-11-27] MEDS: Atorvastatin 20mg tab ORAL SCH (21:30)
[2017-11-28] VITALS (8 sets, daily range): BP systolic 102–139; BP diastolic 38–99
[2017-11-28] MEDS: D5NS 1,000 ML IV SCH (01:46)
[2017-11-28] MEDS: Metoprolol Tartrate 12.5mg TAB ORAL SCH (09:01)
[2017-11-28] MEDS: Docusate 100mg cap ORAL SCH (09:01)
[2017-11-28] MEDS: Ranolazine 500mg tab ORAL SCH (09:01)
[2017-11-28] MEDS: Vitamin A&D Oint 2oz Tube TOPIC SCH (09:03)
--- NOTE | 2017-11-28 09:11 | Pre-Procedure Note/Attestation ---
Pre-Procedure Note/Attestation Complete Prior to Procedure Planned Procedure: not applicable Procedure Narrative: esophagogastroduodenoscopy and colonoscopy Indications for Procedure Pre-Operative Diagnosis: anemia, diarrhea Attestation I attest that I discussed the nature of the procedure; its benefits; risks and complications; and alternatives (and the risks and benefits of such alternatives ), prior to the procedure, with the patient (or the patient's legal national sales representative). I attest that, if there was a reasonable possibility of needing a blood transfusion, the patient (or the patient's legal national sales representative) was given the [facility] standardized written summary, pursuant to the Selwyn Marla Blood Safety Act ([place] Health and Safety Code # 1645, as amended). I attest that I re-evaluated the patient just prior to the surgery and that there has been no change in the patient's H&P, except as documented below: JHON VILLALTA Nov 28, 2017 09:10
--- NOTE | 2017-11-28 09:12 | General Progress Note ---
Assessment/Plan Problem List: (1) Bladder carcinoma ICD Codes: C67.9 - Malignant neoplasm of bladder, unspecified SNOMED: 676518505 (2) HTN (hypertension) ICD Codes: I10 - Essential (primary) hypertension SNOMED: 83762235 (3) GERD (gastroesophageal reflux disease) ICD Codes: K21.9 - Gastro-esophageal reflux disease without esophagitis SNOMED: 875131104 (4) Anemia ICD Codes: D64.9 - Anemia, unspecified SNOMED: 648684395 (5) Colonoscopy planned SNOMED: 590816868 Assessment/Plan plan EGd and colonoscopy today d/w cardiology start IV iron fu CEA Subjective ROS Limited/Unobtainable: Yes Allergies: Coded Allergies: No Known Allergies (Unverified , 11/24/17) Subjective no event Objective Last 24 Hour Vital Signs Date Time Temp Pulse Resp B/P (MAP) Pulse Ox O2 Delivery O2 Flow Rate FiO2 11/28/17 09:01 88 120/66 11/28/17 08:00 98.0 88 18 120/66 96 Room Air 98.0 11/28/17 04:07 79 18 Room Air 21 11/28/17 04:00 82 11/28/17 04:00 97.9 68 18 124/68 96 Room Air 97.9 11/28/17 00:00 97.2 79 18 120/74 97 Room Air 97.2 11/28/17 00:00 76 11/27/17 21:00 87 107/69 11/27/17 20:00 77 11/27/17 20:00 96.4 87 19 107/69 96 Room Air 96.4 11/27/17 16:00 97.2 81 22 103/44 97 Room Air 97.2 11/27/17 16:00 81 11/27/17 12:00 73 11/27/17 12:00 97.2 72 22 97/43 98 Room Air 97.2 Intake and Output 11/27/17 11/28/17 19:00 07:00 Intake Total 1412 ml Output Total 600 ml 300 ml Balance 812 ml -300 ml Intake Oral 700 ml IV Total 712 ml Output Urine Total 600 ml 300 ml # Bowel Movements 1 3 Laboratory Tests 11/27/17 11:35: White Blood Count 5.9, Red Blood Count 2.47L, Hemoglobin 8.1L, Hematocrit 24.4L , Mean Corpuscular Volume 99, Mean Corpuscular Hemoglobin 32.9H, Mean Corpuscular Hemoglobin Concent 33.3, Red Cell Distribution Width 14.2, Platelet Count 295, Mean Platelet Volume 6.4L, Neutrophils (%) (Auto) 82.8H, Lymphocytes (%) (Auto) 9.1L, Monocytes (%) (Auto) 6.9, Eosinophils (%) (Auto) 0.5, Basophils (%) (Auto) 0.8, Sodium Level 139, Potassium Level 3.3L, Chloride Level 111H, Carbon Dioxide Level 17L, Anion Gap 11, Blood Urea Nitrogen 11, Creatinine 1.1, Estimat Glomerular Filtration Rate , Glucose Level 121H, Calcium Level 8.5, Magnesium Level 1.9, Iron Level 16L, Total Iron Binding Capacity 112L, Percent Iron Saturation 14L, Unsaturated Iron Binding 96L, Troponin I 0.043, Pro-B-Type Natriuretic Peptide 3442H 11/28/17 07:30: White Blood Count [Pending], Red Blood Count [Pending], Hemoglobin [Pending], Hematocrit [Pending], Mean Corpuscular Volume [Pending], Mean Corpuscular Hemoglobin [Pending], Mean Corpuscular Hemoglobin Concent [Pending], Red Cell Distribution Width [Pending], Platelet Count [Pending], Mean Platelet Volume [ Pending], Neutrophils (%) (Auto) [Pending], Lymphocytes (%) (Auto) [Pending], Monocytes (%) (Auto) [Pending], Eosinophils (%) (Auto) [Pending], Basophils (%) (Auto) [Pending], Sodium Level [Pending], Potassium Level [Pending], Chloride Level [Pending], Carbon Dioxide Level [Pending], Blood Urea Nitrogen [Pending], Creatinine [Pending], Estimat Glomerular Filtration Rate [Pending], Glucose Level [Pending], Calcium Level [Pending] Height (Feet): 5 Height (Inches): 6.00 Weight (Pounds): 189 General Appearance: alert EENT: normal ENT inspection Neck: supple Cardiovascular: normal rate Respiratory/Chest: decreased breath sounds Abdomen: normal bowel sounds, non tender, soft Extremities: non-tender JHON VILLALTA Nov 28, 2017 09:12
[2017-11-28 09:18] LABS: BASOPHILS % (AUTO) 0.7 % (0.0-2.0); EOSINOPHILS % (AUTO) 0.4 % (0.0-3.0); HEMATOCRIT 26.9 % (42.0-52.0); HEMOGLOBIN 8.8 G/DL (14.2-18.0); LYMPHOCYTES % (AUTO) 8.6 % (20.0-45.0); MEAN CORPUSCULAR VOLUME 100 FL (80-99); MONOCYTES % (AUTO) 6.2 % (1.0-10.0); NEUTROPHILS % (AUTO) 84.1 % (45.0-75.0); PLATELET COUNT 344 K/UL (150-450); RED BLOOD COUNT 2.68 M/UL (4.70-6.10); RED CELL DISTRIBUTION WIDTH 14.2 % (11.6-14.8); WHITE BLOOD COUNT 5.9 K/UL (4.8-10.8)
[2017-11-28 09:42] LABS: ANION GAP 12 mmol/L (5-15); BLOOD UREA NITROGEN 10 mg/dL (7-18); CALCIUM 8.9 MG/DL (8.5-10.1); CARBON DIOXIDE 17 MMOL/L (21-32); CHLORIDE 120 MMOL/L (98-107); POTASSIUM 3.2 MMOL/L (3.5-5.1); SODIUM 149 MMOL/L (136-145)
[2017-11-28] MEDS ORDERED: LR 1000ml ONE (10:00)
[2017-11-28] MEDS ORDERED: Propofol 200mg/20ml IV ONE (10:00)
[2017-11-28] MEDS ORDERED: NS 500ML IV ONE (10:05)
--- NOTE | 2017-11-28 11:09 | Endoscopy Procedure Note ---
Endoscopy Procedure Note General Indication for Procedure: anemia Procedures Performed: EGD, colonoscopy Operative Findings/Diagnosis: gastritis, colitis Specimen: yes Pt Tolerated Procedure Well: Yes Estimated Blood Loss: none Anesthesia Anesthesiologist: flaco Anesthesia: MAC Inserted Devices Implant(s) used?: No Quality Quality of Bowel Preparation: Good Did scope reach the cecum?: Yes Was there any complications?: No GI Core Measures 50 yrs or older w/o bx or poly: No 10yrs. F/U not recommended: Yes If not recommended, why?: Above average risk 10 yrs. F/U needed: Yes 18 years or older w/prev. colo: No JHON VILLALTA Nov 28, 2017 11:09
[2017-11-28] MEDS: Mesalamine 400mg cap ORAL SCH ×2 (13:00→13:32)
--- NOTE | 2017-11-28 13:18 | Pulmonology Progress Note ---
Assessment/Plan Problems: (1) ACS (acute coronary syndrome) (2) CHF (congestive heart failure) (3) HTN (hypertension) (4) Bladder carcinoma (5) IBS (irritable bowel syndrome) (6) Depression Assessment/Plan colonoscopy done, showing colitis, and gastritis continue current meds check h/h dc planning Subjective ROS Limited/Unobtainable: Yes Constitutional: Reports: no symptoms HEENT: Repors: no symptoms Respiratory: Reports: no symptoms Allergies: Coded Allergies: No Known Allergies (Unverified , 11/24/17) Objective Last 24 Hour Vital Signs Date Time Temp Pulse Resp B/P (MAP) Pulse Ox O2 Delivery O2 Flow Rate FiO2 11/28/17 11:40 97.5 73 18 121/43 98 Nasal Cannula 3.0 97.5 11/28/17 11:25 74 18 108/41 98 Simple Mask 6.0 11/28/17 11:20 73 19 104/41 98 Simple Mask 6.0 11/28/17 11:15 97.0 73 19 102/38 98 Simple Mask 6.0 97.0 11/28/17 09:01 88 120/66 11/28/17 08:00 98.0 88 18 120/66 96 Room Air 98.0 11/28/17 08:00 81 11/28/17 04:07 79 18 Room Air 21 11/28/17 04:00 82 11/28/17 04:00 97.9 68 18 124/68 96 Room Air 97.9 11/28/17 00:00 97.2 79 18 120/74 97 Room Air 97.2 11/28/17 00:00 76 11/27/17 21:00 87 107/69 11/27/17 20:00 77 11/27/17 20:00 96.4 87 19 107/69 96 Room Air 96.4 11/27/17 16:00 97.2 81 22 103/44 97 Room Air 97.2 11/27/17 16:00 81 Intake and Output 11/27/17 11/28/17 19:00 07:00 Intake Total 1412 ml Output Total 600 ml 300 ml Balance 812 ml -300 ml Intake Oral 700 ml IV Total 712 ml Output Urine Total 600 ml 300 ml # Bowel Movements 1 3 General Appearance: WD/WN HEENT: normocephalic, atraumatic Respiratory/Chest: chest wall non-tender, lungs clear Cardiovascular: normal peripheral pulses, normal rate Abdomen: normal bowel sounds, soft, non tender Genitourinary: normal external genitalia Extremities: no cyanosis Skin: no lesions 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 Laboratory Tests 11/28/17 07:30: White Blood Count 5.9, Red Blood Count 2.68L, Hemoglobin 8.8L, Hematocrit 26.9L , Mean Corpuscular Volume 100H, Mean Corpuscular Hemoglobin 32.7H, Mean Corpuscular Hemoglobin Concent 32.7, Red Cell Distribution Width 14.2, Platelet Count 344, Mean Platelet Volume 6.5, Neutrophils (%) (Auto) 84.1H, Lymphocytes ( %) (Auto) 8.6L, Monocytes (%) (Auto) 6.2, Eosinophils (%) (Auto) 0.4, Basophils (%) (Auto) 0.7, Sodium Level 149#H, Potassium Level 3.2L, Chloride Level 120H, Carbon Dioxide Level 17L, Anion Gap 12, Blood Urea Nitrogen 10, Creatinine 1.0, Estimat Glomerular Filtration Rate , Glucose Level 116H, Calcium Level 8.9 Current Medications Medications (Trade) Dose Ordered Sig/Kadi Route PRN Reason Start Time Stop Time Status Last Admin Dose Admin Acetaminophen (Tylenol) 650 mg Q4H PRN ORAL For Pain 11/27/17 15:00 12/27/17 14:59 11/27/17 16:01 Albuterol/ Ipratropium (Albuterol/ Ipratropium) 3 ml Q4HRT PRN HHN sob 11/26/17 07:30 12/01/17 07:29 Alprazolam (Xanax) 0.5 mg THREE TIMES A DAY PRN ORAL anxiety 11/26/17 16:45 12/03/17 16:44 11/27/17 02:36 Aspirin (ASA) 81 mg DAILY ORAL 11/29/17 09:00 12/29/17 08:59 Atorvastatin Calcium (Lipitor) 40 mg BEDTIME ORAL 11/26/17 21:00 12/26/17 20:59 11/27/17 21:30 Bisacodyl (Dulcolax) 10 mg DAILY PRN RECTAL CONSTIPATION 11/25/17 08:45 12/25/17 08:44 Clopidogrel Bisulfate (Plavix) 75 mg DAILY ORAL 11/29/17 09:00 12/29/17 08:59 Clotrimazole (Lotrimin) 1 applic EVERY 12 HOURS TOPIC 11/25/17 21:00 12/25/17 20:59 11/28/17 09:03 Dextrose/Sodium Chloride 1,000 ml @ 75 mls/hr [id number] IV 11/25/17 08:30 12/25/17 08:29 11/28/17 01:46 Docusate Sodium (Colace) 200 mg DAILY ORAL 11/25/17 09:00 12/25/17 08:59 11/28/17 09:01 Fluoxetine HCl (PROzac) 20 mg DAILY ORAL 11/25/17 09:00 12/25/17 08:59 11/28/17 09:01 Folic Acid (Folate) 1 mg DAILY ORAL 11/25/17 09:00 12/25/17 08:59 11/28/17 09:01 Furosemide (Lasix) 10 mg DAILY ORAL 11/25/17 09:00 12/25/17 08:59 11/28/17 09:00 Iron Sucrose 100 mg/Sodium Chloride 60 ml @ 240 mls/hr BEDTIME IVPB 11/28/17 21:00 12/02/17 21:14 Loperamide HCl (Imodium) 2 mg Q6HR PRN ORAL Diarrhea 11/25/17 08:45 12/25/17 08:44 Magnesium Hydroxide (Mom) 30 ml DAILY PRN ORAL CONSTIPATION 11/25/17 08:45 12/25/17 08:44 Mesalamine (Asacol) 1,600 mg THREE TIMES A DAY ORAL 11/28/17 13:00 12/28/17 12:59 Mesalamine (Rowasa) 4 gm BEDTIME RECTAL 11/28/17 21:00 12/28/17 20:59 Metoprolol Tartrate (Lopressor) 12.5 mg Q12HR ORAL 11/26/17 21:00 12/26/17 20:59 11/28/17 09:01 Multivitamins (Multivitamins) 1 tab DAILY ORAL 11/25/17 09:00 12/25/17 08:59 11/27/17 08:50 Pantoprazole (Protonix) 40 mg DAILY ORAL 3/2/18 09:00 12/25/17 08:59 11/28/17 09:01 Potassium Chloride (K-Dur) 20 meq DAILY ORAL 11/25/17 09:00 12/25/17 08:59 11/28/17 09:00 Quetiapine Fumarate (SEROquel) 12.5 mg EVERY 8 HOURS ORAL 11/25/17 22:00 12/25/17 21:59 11/27/17 21:31 Ranolazine (Ranexa ER 500mg) 1,000 mg EVERY 12 HOURS ORAL 11/25/17 09:00 12/25/17 08:59 11/28/17 09:01 Vitamin A/Vitamin D (A & D Oint) 1 applic EVERY 12 HOURS TOPIC 11/25/17 21:00 12/25/17 20:59 11/28/17 09:03 DAT BAL 5, 2018 13:17
[2017-11-28] MEDS ORDERED: XANAX0.5 MG ORAL (13:28)
--- NOTE | 2017-11-28 13:39 | General Progress Note ---
Assessment/Plan Status: stable, progressing Assessment/Plan encephalopathy agitated seroquel every 6 hrs Subjective Date patient seen: Nov 26, 2017 Neurologic/Psychiatric: Reports: anxiety, depressed, emotional problems Allergies: Coded Allergies: No Known Allergies (Unverified , 11/24/17) Subjective the pt is less agitated and calmer confused Objective Last 24 Hour Vital Signs Date Time Temp Pulse Resp B/P (MAP) Pulse Ox O2 Delivery O2 Flow Rate FiO2 11/28/17 11:40 97.5 73 18 121/43 98 Nasal Cannula 3.0 97.5 11/28/17 11:25 74 18 108/41 98 Simple Mask 6.0 11/28/17 11:20 73 19 104/41 98 Simple Mask 6.0 11/28/17 11:15 97.0 73 19 102/38 98 Simple Mask 6.0 97.0 11/28/17 09:01 88 120/66 11/28/17 08:00 98.0 88 18 120/66 96 Room Air 98.0 11/28/17 08:00 81 11/28/17 04:07 79 18 Room Air 21 11/28/17 04:00 82 11/28/17 04:00 97.9 68 18 124/68 96 Room Air 97.9 11/28/17 00:00 97.2 79 18 120/74 97 Room Air 97.2 11/28/17 00:00 76 11/27/17 21:00 87 107/69 11/27/17 20:00 77 11/27/17 20:00 96.4 87 19 107/69 96 Room Air 96.4 11/27/17 16:00 97.2 81 22 103/44 97 Room Air 97.2 11/27/17 16:00 81 Intake and Output 11/27/17 11/28/17 19:00 07:00 Intake Total 1412 ml Output Total 600 ml 300 ml Balance 812 ml -300 ml Intake Oral 700 ml IV Total 712 ml Output Urine Total 600 ml 300 ml # Bowel Movements 1 3 Laboratory Tests 11/28/17 07:30: White Blood Count 5.9, Red Blood Count 2.68L, Hemoglobin 8.8L, Hematocrit 26.9L , Mean Corpuscular Volume 100H, Mean Corpuscular Hemoglobin 32.7H, Mean Corpuscular Hemoglobin Concent 32.7, Red Cell Distribution Width 14.2, Platelet Count 344, Mean Platelet Volume 6.5, Neutrophils (%) (Auto) 84.1H, Lymphocytes ( %) (Auto) 8.6L, Monocytes (%) (Auto) 6.2, Eosinophils (%) (Auto) 0.4, Basophils (%) (Auto) 0.7, Sodium Level 149#H, Potassium Level 3.2L, Chloride Level 120H, Carbon Dioxide Level 17L, Anion Gap 12, Blood Urea Nitrogen 10, Creatinine 1.0, Estimat Glomerular Filtration Rate , Glucose Level 116H, Calcium Level 8.9 Height (Feet): 5 Height (Inches): 6.00 Weight (Pounds): 189 General Appearance: no apparent distress, alert, confused, agitated Neurologic: alert, responsive, disoriented, depressed affect Sanam Burton M.D. Nov 28, 2017 13:39
--- NOTE | 2017-11-28 13:40 | General Progress Note ---
Assessment/Plan Status: stable, progressing Assessment/Plan encephalopathy agitated seroquel every 6 hrs\ xanax prn Subjective Date patient seen: Nov 28, 2017 Neurologic/Psychiatric: Reports: anxiety, depressed, emotional problems Allergies: Coded Allergies: No Known Allergies (Unverified , 11/24/17) Subjective the pt is doing better daughter is here asking for xanax the pt has panic attacks Objective Last 24 Hour Vital Signs Date Time Temp Pulse Resp B/P (MAP) Pulse Ox O2 Delivery O2 Flow Rate FiO2 11/28/17 11:40 97.5 73 18 121/43 98 Nasal Cannula 3.0 97.5 11/28/17 11:25 74 18 108/41 98 Simple Mask 6.0 11/28/17 11:20 73 19 104/41 98 Simple Mask 6.0 11/28/17 11:15 97.0 73 19 102/38 98 Simple Mask 6.0 97.0 11/28/17 09:01 88 120/66 11/28/17 08:00 98.0 88 18 120/66 96 Room Air 98.0 11/28/17 08:00 81 11/28/17 04:07 79 18 Room Air 21 11/28/17 04:00 82 11/28/17 04:00 97.9 68 18 124/68 96 Room Air 97.9 11/28/17 00:00 97.2 79 18 120/74 97 Room Air 97.2 11/28/17 00:00 76 11/27/17 21:00 87 107/69 11/27/17 20:00 77 11/27/17 20:00 96.4 87 19 107/69 96 Room Air 96.4 11/27/17 16:00 97.2 81 22 103/44 97 Room Air 97.2 11/27/17 16:00 81 Intake and Output 11/27/17 11/28/17 19:00 07:00 Intake Total 1412 ml Output Total 600 ml 300 ml Balance 812 ml -300 ml Intake Oral 700 ml IV Total 712 ml Output Urine Total 600 ml 300 ml # Bowel Movements 1 3 Laboratory Tests 11/28/17 07:30: White Blood Count 5.9, Red Blood Count 2.68L, Hemoglobin 8.8L, Hematocrit 26.9L , Mean Corpuscular Volume 100H, Mean Corpuscular Hemoglobin 32.7H, Mean Corpuscular Hemoglobin Concent 32.7, Red Cell Distribution Width 14.2, Platelet Count 344, Mean Platelet Volume 6.5, Neutrophils (%) (Auto) 84.1H, Lymphocytes ( %) (Auto) 8.6L, Monocytes (%) (Auto) 6.2, Eosinophils (%) (Auto) 0.4, Basophils (%) (Auto) 0.7, Sodium Level 149#H, Potassium Level 3.2L, Chloride Level 120H, Carbon Dioxide Level 17L, Anion Gap 12, Blood Urea Nitrogen 10, Creatinine 1.0, Estimat Glomerular Filtration Rate , Glucose Level 116H, Calcium Level 8.9 Height (Feet): 5 Height (Inches): 6.00 Weight (Pounds): 189 General Appearance: no apparent distress, alert, agitated Neurologic: alert, responsive, disoriented, depressed affect Sanam Burton M.D. Nov 28, 2017 13:40
[2017-11-28] MEDS ORDERED: ASACOL HD800 MG RECTAL (15:10)
[2017-11-28] MEDS ORDERED: Mesalamine Enema 4gm/60ml RECTAL ONE (16:00)
--- NOTE | 2017-11-28 16:00 | Procedure Note ---
DATE OF PROCEDURE: 11/28/2017 SURGEON: Silvestre Bansal M.D. PROCEDURE: Upper endoscopy with biopsy and colonoscopy with biopsy. ANESTHESIOLOGIST: Selwyn Ruiz M.D. INSTRUMENT: Olympus adult flexible upper endoscope and colonoscope. INDICATION: Diarrhea, anemia, iron deficiency. The procedure, risks, benefits, and possible consequences, including hemorrhage, aspiration, perforation and infection, and alternative treatments, were explained to the patient/legal guardian by Dr. Silvestre Bansal and the patient/legal guardian understood and accepted these risks. DESCRIPTION OF PROCEDURE: After informed consent was obtained and the patient was adequately sedated, first Olympus upper endoscope was advanced from mouth into the second portion of duodenum and retroflexion was performed in the stomach. The patient had evidence of diffuse gastritis. Random biopsies from antrum and body were obtained to rule out H. pylori infection. The patient had evidence of a nodule, roughly measured about 5 mm in the body of the stomach, which was biopsied. At this time, the upper endoscope was retrieved. The patient was turned over for colonoscopy. First, a rectal exam was performed, which was positive for internal hemorrhoids. Then, the scope was advanced from rectum into the cecum, the appendix orifice, ileocecal valve, and upper quadrant palpation. Quality of prep was good. The patient had evidence of patchy severe colitis, one above the rectum, one in the sigmoid colon about 30 cm from the anal verge. These areas were severely inflamed and ulcerated, which were biopsied. The rest of the colonic mucosa grossly within normal limit. Random biopsy from the left colon was obtained to rule out microscopic colitis. There was one diminutive polyp in the proximal transverse colon, which was removed with the cold biopsy forceps technique. Retroflexion of rectum showed evidence of few medium-sized nonbleeding internal hemorrhoids. SUMMARY FINDINGS: 1. Gastritis, status post biopsy. 2. Gastric nodule, status post biopsy. 3. Evidence of patchy colitis in the rectum and the sigmoid, suspicious for either ulcerative colitis versus Crohn's disease versus infectious, unlikely to be a malignancy. 4. Internal hemorrhoids. 5. One colonic polyp removed from ascending colon. See above for details. RECOMMENDATIONS: Start on IV iron for iron deficiency. Follow laboratories. Hold Plavix for today given the biopsies done today. Follow biopsy results and treat accordingly. We will start the patient on Rowasa enema and Asacol p.o. pending biopsy results. I want to thank Dr. Butler and also Dr. Dior for this kind referral. Silvestre Bansal M.D. DR: FELIPE JOB#: [id number] CC: Pipe Butler M.D.; Fax#: [phone] SILVESTRE DIOR M.D. ; FAX#: [phone] [place]
[2017-11-28] MEDS ORDERED: Iron Sucrose 100 MG in NS 55 ML IVPB SCH (21:00)
[2017-11-28] MEDS ORDERED: Mesalamine Enema 4gm/60ml RECTAL SCH (21:00)
[2017-11-29] MEDS ORDERED: Aspirin Baby 81mg ORAL SCH (09:00)
--- NOTE | 2017-11-29 16:02 | Cardiology Report ---
APPROVED REPORT EKG Measurement Heart [id number] Normal sinus rhythm, IVCD Inferior infarct, age undetermined Abnormal ECG
--- NOTE | 2017-12-01 10:41 | Discharge Summary ---
Discharge Summary Hospital Course Date of Admission Nov 24, 2017 at 21:43 Date of Discharge Nov 28, 2017 at 18:34 Admitting Diagnosis chest pain HPI Alcon Mejia is a 77 year old male who was admitted on Nov 24, 2017 at 21:43 for Chest Pain Hospital Course dc summary #[id number] Discharge Medications New Medications: Alprazolam* (Xanax*) 0.5 Mg Tablet 0.5 MG ORAL THREE TIMES A DAY PRN for 30 Days, TAB Continued Medications: Albuterol Sulfate* (Albuterol Sulfate Hhn*) 2.5 Mg/3 Ml Vial.neb 3 ML INH Q4H PRN for Shortness of Breath, EA Amlodipine Besylate* (Amlodipine Besylate*) 5 Mg Tablet 5 MG ORAL DAILY, TAB Atorvastatin Calcium* (Atorvastatin Calcium*) 20 Mg Tablet 20 MG ORAL BEDTIME, TAB Carvedilol* (Carvedilol*) 3.125 Mg Tablet 3.125 MG ORAL EVERY 12 HOURS, TAB Docusate Sodium* (Docusate Sodium*) 100 Mg Capsule 200 MG ORAL DAILY, CAP Fluoxetine Hcl* (Prozac*) 20 Mg Capsule 20 MG ORAL DAILY, CAP Furosemide* (Lasix*) 20 Mg Tablet 10 MG ORAL DAILY, TAB Pantoprazole* (Protonix*) 40 Mg Tablet.dr 40 MG ORAL DAILY, TAB Ranolazine* (Ranexa*) 500 Mg Tab.er.12h 1000 MG ORAL EVERY 12 HOURS, #60 TAB 0 Refills Discharge Condition Upon Discharge: stable Discharge Disposition Patient was discharged to SNF/Subacute Facility(03) Discharge Diagnoses: Anibal (Randee)Bianca NP Dec 01, 2017 10:41
--- NOTE | 2017-12-02 04:30 | Discharge Summary 2 SIG ---
please contact Dr David Collado [phone] for future re-admissions to [facility]. DATE OF ADMISSION: 11/24/2017 DATE OF DISCHARGE: 11/28/2017 REASON FOR ADMISSION: 77-year-old male with past medical history of coronary artery disease with CABG, AK, hypertension, CHF, pneumonia, bladder carcinoma, presented from the care home facility for evaluation of chest pain. Apparently the patient was recently hospitalized for severe colitis and diarrhea and subsequent dehydration. He was hospitalized in [facility] for couple of weeks and then was transitioned to the care home facility. In the nursing facility, he had a chest pain and anxiety and was transferred to emergency department for further evaluation. Vital signs were stable. Pulse oximetry was stable on room air. Stable blood pressure. Noted elevated troponin -0.129. EKG shows normal sinus rhythm, no acute ischemic changes. Chest x-ray revealed no acute cardiopulmonary pathology. Potassium -5.8 and CO2 was 19. ADMITTING DIAGNOSES: 1. Chest pain in the setting of coronary artery disease with history of coronary artery bypass graft and slightly elevated troponin. 2. History of congestive heart failure. 3. Hypertension. 4. Anemia of chronic disease. 5. Metabolic acidosis. 6. Hyperkalemia. HOSPITAL COURSE: The patient admitted to telemetry floor. Pulmonology and Cardiology consults were requested. Hyperkalemia was treated and followup. Serial troponin, EKG, and 2D echo were ordered. The patient initially was NPO except medications and started on gentle IV hydration. Serial troponin revealed small elevation with trend down, no ischemic changes on EKG. Per ssis architect, troponin did not reach level to be indicative of AK by WHO criteria. Patient denied chest pain. Patient failed PCI in 2016. Short Piece Handler doubted utility of repeating ischemia evaluation and recommended medical treatment. Patient was on dual antiplatelet therapy with aspirin and Plavix, along with statin, beta shawn, Isordil and Ranexa. Per ssis architect, patient was prone to have anginal symptoms based on the prior cardiac workup. Echo revealed preserved ejection fraction of 55%, right ventricular systolic pressure of 33, [id number] mitral regurgitation. Lipid panel was stable. Blood pressure was managed with calcium channel shawn and beta shawn. The patient was started on gentle diuresis. Cardiorenal parameters and volumes were closely monitored. Electrolytes were corrected as needed. Supplemental oxygen and pulmonary toilet were provided as needed. GI consult was requested in view of recent gastritis and colitis. Short Piece Handler stated that the patient was at low to intermediate risk for GI procedure. GI closely followed. Counts were closely monitored. The patient started on intravenous iron. Anemia workup also revealed anemia of chronic disease. GI prophylaxis provided. The patient subsequently undergone colonoscopy on 11/28/2017 with findings of colitis and gastritis. Wound care provided as per wound care nurse recommendation for sacrococcyx deep tissue injury pressure ulcer present on admission and Rachael rash in the perineal area. The patient was stable for discharge to care home facility. Outpatient follow up with GI. FINAL DIAGNOSES: 1. Chest pain due to anginal symptoms 2. Abnormal troponin ( with minimal elevation, trending down) 3. Coronary artery disease with history of CABG. 4. large right coronary artery ischemic burden 37% , failed PCI 5. History of congestive heart failure. 6. Moderate mitral regurgitation. 7. Hypertension. 8. History of CVA. 9. Anemia. 10. Bladder CA. 11. s/p colonoscopy with findings of gastritis and colitis 12. Encephalopathy 13.Obesity. 14. Sacrococcyx deep tissue injury present on admission. 15. Rachael rash perineal area. 16. Hyperkalemia, resolved. 17. Metabolic acidosis, resolved. DISCHARGE MEDICATIONS: See medication reconciliation list. DISCHARGE INSTRUCTIONS: The patient was discharged to care home facility. FOLLOWUP: Followup with medical doctor at the facility. David Collado M.D. Bianca CasperStaten Island University HospitalJohanny N.PVishnu DR: Raul JOB#: [id number] CC: [place]
== END 2017-11-28 18:34 | DRG 302 ==
LOC: EDBD 19:44 → EMR 20:19 → 2W 21:43 → EDBEDREQ 11-25 04:33 → 2W 11-25 16:29 → 2E 11-26 07:05
DX: I25.119 Atherosclerotic heart disease of native coronary artery with unspecified angina pectoris (principal); G93.40 Encephalopathy, unspecified; L89.150 Pressure ulcer of sacral region, unstageable; E87.2 Acidosis; I11.0 Hypertensive heart disease with heart failure; C67.9 Malignant neoplasm of bladder, unspecified; F03.91 Unspecified dementia, unspecified severity, with behavioral disturbance; I50.32 Chronic diastolic (congestive) heart failure; D63.8 Anemia in other chronic diseases classified elsewhere; E87.5 Hyperkalemia; F32.9 Major depressive disorder, single episode, unspecified; K58.9 Irritable bowel syndrome, unspecified; Z86.73 Personal history of transient ischemic attack (TIA), and cerebral infarction without residual deficits; Z95.1 Presence of aortocoronary bypass graft; Z85.51 Personal history of malignant neoplasm of bladder; Z91.81 History of falling; Z87.891 Personal history of nicotine dependence; E66.9 Obesity, unspecified; K21.9 Gastro-esophageal reflux disease without esophagitis; I34.0 Nonrheumatic mitral (valve) insufficiency; I25.709 Atherosclerosis of coronary artery bypass graft(s), unspecified, with unspecified angina pectoris
CPT/HCPCS: 36415; 71045; 80048; 80053; 80061; 80076; 81003; 82270; 82378; 82550; 82553; 83540; 83550; 83735; 83880; 84100; 84132; 84443; 84484; 85025; 85610; 85730; 87081; 93005; 93306; 94003; 94150; 94664; 99285; J8499